=== PATIENT | male | born 1965 | race Caucasian/White ===

== ENCOUNTER 2018-09-16 06:31 | Inpatient (IN) ==
[2018-09-16] MEDS ORDERED: MoRPHine SULFATE 10 MG/ML CARP/VIAL IV STA ×2 (06:52→08:17)
[2018-09-16] MEDS ORDERED: SODIUM CHLORIDE 0.9% 1000ML 1,000 ML IV ONE (06:52)
[2018-09-16] MEDS ORDERED: ONDANSETRON INJ 2 MG/ML 2 ML VIAL IV STA (06:52)
--- NOTE | 2018-09-16 06:59 | Emergency Department Note ---
History of Present Illness General Chief complaint: GI Assessment Stated complaint: LEFT SIDE INTESTINAL PAIN Time Seen by Provider: 09/16/18 06:44 History of Present Illness Maximum Pain Intensity: 7 This 52-year-old male presents the ER with chief complaint of left-sided abdominal pain. The patient states that he has had a dull pain in the left side intermittently for several months. This morning it got very severe and he rates it at a 7 out of 10 and is more sharp in nature. The patient admits to some nausea but denies any vomiting. The patient denies any diarrhea. The patient denies any urinary symptoms of frequency, urgency or dysuria. The patient does have a history of kidney stones but this does not feel similar. The patient denies any abdominal surgeries. He denies any chest pain, shortness of breath or fever. He had a colonoscopy 5 years ago which was normal. Home Medications Home Medications Medication Instructions Recorded Confirmed Type No Known Home Medications 09/16/18 09/16/18 History Allergies Allergy/AdvReac Type Severity Reaction Status Date / Time aspirin Allergy Unknown . Verified 09/16/18 06:50 NSAIDS (Non-Steroidal Allergy Unknown hives Verified 09/16/18 06:50 Anti-Inflamma Past Med/Surg History Medical History No significant past medical history No significant past surgical history Social History Preferred Language: Turkmen Communication Ability: Effective Visual Impairment: No Limitations marital status: Current Living Situation: Spouse Feels Safe at Home: Yes Smoking Status: Current some day smoker Hx Alcohol Use: Yes Review of Systems A total of 10 systems reviewed and were otherwise negative Physical Exam Vital Signs Vital Signs - 24 hr 09/16/18 06:35 09/16/18 07:26 09/16/18 08:00 Temperature 36.6 C Temperature Source Oral Sepsis Recent Fever Within 48 Hours No Sepsis New/Unexplained Change in Mental Status No Sepsis Action Taken by Nursing No Action Required Pulse Rate 66 87 Pulse Rate [Right Finger] 78 Pulse Rhythm Regular Regular Pulse Strength Normal Respiratory Rate 20 20 16 Respiratory Effort / Characteristics Non-Labored Spontaneous Non-Labored Spontaneous Respiratory Depth Normal Normal Respiratory Pattern Regular Regular Blood Pressure 154/106 H Blood Pressure [Right Arm] 143/102 H Blood Pressure Mean 122 Blood Pressure Mean [Right Arm] 115 Blood Pressure Position Sitting Pulse Oximetry 96 98 95 Oxygen Delivery Method Room Air Room Air Room Air 09/16/18 09:03 Temperature Temperature Source Sepsis Recent Fever Within 48 Hours Sepsis New/Unexplained Change in Mental Status Sepsis Action Taken by Nursing Pulse Rate Pulse Rate [Right Finger] 68 Pulse Rhythm Pulse Strength Respiratory Rate 20 Respiratory Effort / Characteristics Non-Labored Spontaneous Respiratory Depth Normal Respiratory Pattern Regular Blood Pressure Blood Pressure [Right Arm] 101/95 Blood Pressure Mean Blood Pressure Mean [Right Arm] 97 Blood Pressure Position Pulse Oximetry 100 Oxygen Delivery Method Room Air GENERAL: 52-year-old male appears uncomfortable secondary to abdominal pain. MENTAL Status: Alert and oriented x3. MOUTH: Mucosa is moist NECK: Supple, no lymphadenopathy noted. No carotid bruits noted. LUNGS: Clear auscultation without wheezes rales or rhonchi. CARDIAC: Regular rate and rhythm without murmur. Pulses is full and equal throughout. BACK: No CVA tenderness noted. ABDOMEN: Positive bowel sounds all 4 quadrants. Soft, mild tenderness in the left entire abdomen right side is nontender to palpation without organomegaly or masses. EXTREMITIES: No cyanosis or edema noted. Course Administered Medications Discontinued Medications Sodium Chloride (Nss 1000ml) 1,000 mls @ 999 mls/hr IV .Q1H1M ONE Stop: 09/16/18 07:52 Last Infusion: 09/16/18 08:32 Dose: 1,000 mls/hr Documented by: [id number] Admin: 09/16/18 07:21 Dose: 999 mls/hr Documented by: [id number] Morphine Sulfate (Morphine Sulfate) 6 mg IV NOW STA Stop: 09/16/18 06:53 Last Admin: 09/16/18 07:21 Dose: 10 mg Documented by: [id number] Morphine Sulfate (Morphine Sulfate) 6 mg IV NOW STA Stop: 09/16/18 08:18 Last Admin: 09/16/18 08:22 Dose: 10 mg Documented by: [id number] Ondansetron HCl (Zofran) 4 mg IV NOW STA Stop: 09/16/18 06:53 Last Admin: 09/16/18 07:20 Dose: 4 mg Documented by: [id number] Tamsulosin HCl (Flomax) 0.4 mg PO NOW ONE Stop: 09/16/18 08:12 Last Admin: 09/16/18 08:15 Dose: 0.4 mg Documented by: [id number] Medical Decision Making Differential Diagnosis Diverticulitis, colitis, ureteral calculi, pyelonephritis, UTI Medical Records Attestation: I reviewed the patient's medical records. Home Medications Current Medication List: was personally reviewed by me Laboratory Data Attestation: I reviewed the patient's lab results. Result diagrams: 09/16/18 07:15 09/16/18 07:15 Lab Results 09/16/18 09/16/18 09/16/18 Range/Units 07:15 07:15 07:15 WBC 18.70 H (4.8-10.8) K/uL RBC 5.03 (4.7-6.1) M/uL Hgb 16.0 (14.0-18.0) g/dL Hct 46.6 (42-52) % MCV 92.6 (80-100) fL MCH 31.8 (25-34) pg MCHC 34.3 (32-36) g/dL RDW Std Deviation 45.1 (36.4-46.3) fL RDW Coeff of Hai 13.4 (11.5-14.5) % Plt Count 362 (130-400) K/uL MPV 10.1 (7.4-10.4) fL Immature Gran % (Auto) 0.4 % Neut % (Auto) 82.8 % Lymph % (Auto) 8.6 % [place] % (Auto) 7.8 % Eos % (Auto) 0.2 % Baso % (Auto) 0.2 % Immature Gran # (Auto) 0.07 H (0.00-0.02) K/uL Neut # (Auto) 15.50 H (1.4-6.5) K/uL Lymph # (Auto) 1.61 (1.2-3.4) K/uL [place] # (Auto) 1.45 H (0.11-0.59) K/uL Eos # (Auto) 0.04 (0-0.5) K/uL Baso # (Auto) 0.03 (0-0.2) K/uL Sodium 140 (136-145) mmol/L Potassium 3.7 (3.5-5.1) mmol/L Chloride 108 H (98-107) mmol/L Carbon Dioxide 25 (21-32) mmol/L Anion Gap 7.0 (3-11) BUN 18 (7-18) mg/dl Creatinine 1.03 (0.6-1.4) mg/dl Est Cr Clr Drug Dosing 86.1 ml/min Est GFR ( Amer) 97.0 Est GFR (Non-Af Amer) 83.7 BUN/Creatinine Ratio 17.9 (10-20) Glucose 113 H (70-99) mg/dl Calcium 9.0 (8.5-10.1) mg/dl Total Bilirubin 0.4 (0.2-1) mg/dl AST 23 (15-37) U/L ALT 41 (12-78) U/L Alkaline Phosphatase 44 L (45-117) U/L Total Protein 7.6 (6.4-8.2) gm/dl Albumin 3.8 (3.4-5.0) gm/dl Globulin 3.8 (2.5-4.0) gm/dl Albumin/Globulin Ratio 1.0 (0.9-2) Lipase 156 (73-393) U/L Urine Color Yellow Urine Appearance Slightly Cloudy (Clear) Urine pH 7.0 (4.5-7.5) Ur Specific [place] 1.025 (1.000-1.030) Urine Protein 1+ H (Negative) Urine Glucose (UA) Negative (Negative) Urine Ketones Negative (Negative) Urine Blood 3+ H (Negative) Urine Nitrite Negative (Negative) Urine Bilirubin Negative (Negative) Urine Urobilinogen Negative (Negative) Ur Leukocyte Esterase Negative (Negative) Urine RBC >30 H (0-4) /hpf Urine WBC 10-30 H (0-5) /hpf Ur Epithelial Cells 5-10 H (0-5) /lpf Urine Crystals Calcium Oxalate H (None Prsent) Urine Bacteria 1+ H (Negative) Imaging Data Attestation: I personally reviewed and interpreted this imaging study as follows: My Impression: Large proximal left stone noted Radiologist's Impression: CT abd pelvis wo con CLINICAL HISTORY: 52 years-old Male presenting with Left-sided abdominal and flank pain. TECHNIQUE: Multidetector CT of the abdomen and pelvis was performed without the use of intravenous contrast. IV contrast: None. One or more dose lowering techniques were used consistent with the principles of ALARA (as low as reasonably achievable), including automatic exposure control, mA or kV adjustment to individual patient size, and/or use of iterative reconstruction. COMPARISON: None. CT DOSE (mGy.cm): The estimated cumulative dose is 615.03 mGy.cm. FINDINGS: [employer] Installer topogram: Calcification projects over the left mid abdomen. Lung bases: Normal heart size. No pericardial or pleural effusion. Minimal dependent changes likely atelectasis. Liver: Normal morphology. Normal density. Biliary: No gross biliary ductal dilatation allowing for noncontrast technique. Normal gallbladder. Pancreas: Normal noncontrast appearance. Spleen: Normal noncontrast appearance. Splenule noted. Adrenal glands: Normal. Kidneys and ureters: Moderate pelvocaliectasis of the left kidney with moderate left perinephric fat infiltration markedly asymmetric to the right. Lower density left renal parenchyma. Obstructing 19 mm calculus in the left ureteropelvic junction. Urothelial thickening noted in this region with periureteral fat infiltration. The remainder of the left ureter is decompressed. No additional ureteral calculus. Multiple bilateral largely punctate nonobstructing renal calculi with a greater stone burden on the left. Hypodensity in the right kidney likely cyst. No right hydronephrosis or hydroureter. Bladder: Circumferential bladder wall thickening. Pelvic organs: Normal noncontrast appearance. Bowel: Normal appendix. No bowel obstruction. Peritoneal cavity: No free fluid or intraperitoneal gas. Lymph nodes: No gross lymphadenopathy allowing for noncontrast technique. Vasculature: Normal noncontrast appearance. Abdominal wall: Normal. Musculoskeletal: Normal. IMPRESSION: 1. Obstructing 19 mm calculus at the left ureteropelvic junction with resultant moderate left hydronephrosis. 2. Bilateral nonobstructing nephrolithiasis with a greater stone burden on the left. These calculi are largely punctate. 3. Circumferential bladder wall thickening may be reactive, indicate underlying cystitis, or due to chronic bladder outlet obstruction in the setting of benign prostatic hyperplasia. Correlate with urinalysis. Electronically signed by: Romulo Johnson M.D. 09/16/2018 8:55 AM Blood Pressure Blood Pressure Findings: Elevated blood pressure MDM Narrative The patient was evaluated. IV access was obtained. The patient was given 1 L of normal saline wide open. He was given Zofran 4 mg IV and morphine 6 mg IV. CBC and differential, renal profile, LFTs and lipase levels were ordered. Urinalysis was ordered. CT of the abdomen and pelvis with IV and oral contrast was ordered and interpreted by the radiologist and myself. Labs are reviewed. The patient's white count was elevated at 18,000 otherwise labs are unremarkable. Urinalysis revealed +3 blood. Also revealed revealed calcium oxalate. negative for nitrates and leukocytes. I feel that this is most likely a kidney stone therefore the CT with IV and oral contrast was canceled and a CT without contrast was ordered. The patient was given Flomax 0.4 mg p.o. the patient was reevaluated and was still in significant pain therefore he was given additional 6 mg of morphine IV. CT of the abdomen and pelvis revealed a 19 mm stone at the left ureteropelvic junction. This is moderate hydro. I consulted Dr. Swanson's PA, Cherry Landeros who stated to have the patient admitted through medicine and they will see the patient on the floor[facility] Impression & Plan Left ureteral calculus, Hydronephrosis Discharge Plan Visit Data Chief Complaint: GI Assessment Stated Complaint: LEFT SIDE INTESTINAL PAIN ED Provider: Fernando Liu ED Midlevel Provider: Luly Mccain Discharge Problem: Left ureteral calculus, Hydronephrosis Patient Disposition: Being Evaluated by Hospitalist Forms Stand Alone Forms: [facility], Important Visit Information Prescriptions Prescriptions: No Action No Known Home Medications RF: 0 Referrals Referrals: Ken Brown [Primary Care Provider] -
[2018-09-16 07:28] LABS: Basophils # (auto) 0.03 K/uL (0-0.2); Basophils % (auto) 0.2 %; Eosinophils # (auto) 0.04 K/uL (0-0.5); Eosinophils % (auto) 0.2 %; Hematocrit (blood only) 46.6 % (42-52); Immature Granulocytes # (auto) 0.07 K/uL (0.00-0.02); Immature Granulocytes % (auto) 0.4 %; Lymphocytes # (auto) 1.61 K/uL (1.2-3.4); Lymphocytes % (auto) 8.6 %; Mean Corpuscular Hgb Conc 34.3 g/dL (32-36); Mean Corpuscular Volume 92.6 fL (80-100); Mean Platelet Volume 10.1 fL (7.4-10.4); Monocytes # (auto) 1.45 K/uL (0.11-0.59); Monocytes % (auto) 7.8 %; Neutrophils % (auto) 82.8 %; Platelet Count 362 K/uL (130-400); RDW Coefficient of Variation 13.4 % (11.5-14.5); RDW Standard Deviation 45.1 fL (36.4-46.3); Red Blood Count 5.03 M/uL (4.7-6.1)
[2018-09-16 07:35] LABS: Appearance Urine Slightly Cloudy (Clear); Bilirubin Urine Negative (Negative); Blood Urine 3+ (Negative); Color Urine Yellow; Glucose Urine UA Negative (Negative); Ketones Urine Negative (Negative); Leukocyte Esterase Urine Negative (Negative); Nitrite Urine Negative (Negative); Protein Urine 1+ (Negative); Specific Gravity Urine 1.025 (1.000-1.030); Urobilinogen Urine Negative (Negative)
[2018-09-16 07:39] LABS: Bacteria Urine 1+ (Negative); RBC Urine >30 /hpf (0-4)
[2018-09-16 07:44] LABS: Albumin Level 3.8 gm/dl (3.4-5.0); BUN Creatinine Ratio 17.9 (10-20); Creatinine Clr Calc Pharmacy 86.1 ml/min; Est GFR (Non-African American) 83.7; Potassium 3.7 mmol/L (3.5-5.1)
[2018-09-16 07:47] LABS: Bilirubin,Total 0.4 mg/dl (0.2-1); Globulin 3.8 gm/dl (2.5-4.0); Total Protein 7.6 gm/dl (6.4-8.2)
[2018-09-16] MEDS ORDERED: TAMSULOSIN HCL 0.4 MG CAP PO ONE (08:11)
--- NOTE | 2018-09-16 08:56 | CT Scan Report ---
CT abd pelvis wo con CLINICAL HISTORY: 52 years-old Male presenting with Left-sided abdominal and flank pain. TECHNIQUE: Multidetector CT of the abdomen and pelvis was performed without the use of intravenous co ntrast. IV contrast: None. One or more dose lowering techniques were used consistent with the princip les of ALARA (as low as reasonably achievable), including automatic exposure control, mA or kV adjust ment to individual patient size, and/or use of iterative reconstruction. COMPARISON: None. CT DOSE (mGy.cm): The estimated cumulative dose is 615.03 mGy.cm. FINDINGS: Promotion Manager topogram: Calcification projects over the left mid abdomen. Lung bases: Normal heart size. No pericardial or pleural effusion. Minimal dependent changes likely a telectasis. Liver: Normal morphology. Normal density. Biliary: No gross biliary ductal dilatation allowing for noncontrast technique. Normal gallbladder. Pancreas: Normal noncontrast appearance. Spleen: Normal noncontrast appearance. Splenule noted. Adrenal glands: Normal. Kidneys and ureters: Moderate pelvocaliectasis of the left kidney with moderate left perinephric fat infiltration markedly asymmetric to the right. Lower density left renal parenchyma. Obstructing 19 mm calculus in the left ureteropelvic junction. Urothelial thickening noted in this region with periure teral fat infiltration. The remainder of the left ureter is decompressed. No additional ureteral calc ulus. Multiple bilateral largely punctate nonobstructing renal calculi with a greater stone burden on the left. Hypodensity in the right kidney likely cyst. No right hydronephrosis or hydroureter. Bladder: Circumferential bladder wall thickening. Pelvic organs: Normal noncontrast appearance. Bowel: Normal appendix. No bowel obstruction. Peritoneal cavity: No free fluid or intraperitoneal gas. Lymph nodes: No gross lymphadenopathy allowing for noncontrast technique. Vasculature: Normal noncontrast appearance. Abdominal wall: Normal. Musculoskeletal: Normal. IMPRESSION: 1. Obstructing 19 mm calculus at the left ureteropelvic junction with resultant moderate left hydron ephrosis. 2. Bilateral nonobstructing nephrolithiasis with a greater stone burden on the left. These calculi a re largely punctate. 3. Circumferential bladder wall thickening may be reactive, indicate underlying cystitis, or due to chronic bladder outlet obstruction in the setting of benign prostatic hyperplasia. Correlate with uri nalysis. Electronically signed by: Romulo Johnson M.D. 09/16/2018 8:55 AM
[2018-09-16] MEDS ORDERED: SODIUM CHLORIDE 0.9% 1000ML 500 ML IV STA (10:00)
--- NOTE | 2018-09-16 10:14 | History & Physical Report ---
Date of Service September 16, 2018 Assessment & Plan (1) Left ureteral calculus: This is a 52 year old male who has a significant PMH of kacy thyroiditis, tobacco use disorder, hx of nephrolithiasis s/p cysto and lithotripsy in 2006, NSAID/ASA allergy who presents to [facility] ED secondary to LLQ abdominal pain x [address] Scan abd/pelvis revealed large obstructing 19mm L renal calculus at UPJ with moderate L hydronephrosis along with bilateral nonobstructing nephrolithiasis with a greater stone burden on the left. 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 (5) Tobacco use disorder: -pt defers nicotine patch at this time (6) DVT prophylaxis: -SCDS/TEDS, pt low risk for DVT and likely to undergo procedure later today Disposition: D/C to home when able Follow up: PCP Dr. Brown upon discharge Patient was seen and examined in collaboration with Dr. Aparicio, please see addendum Starting 09/16/18 patient will be followed by Dr. Christina History of Present Illness Chief Complaint: LLQ abdominal pain x 1 day. Primary Care Provider: Ken Brown This is a 52 year old male who has a significant PMH of kacy thyroiditis, tobacco use disorder, hx of nephrolithiasis s/p cysto and lithotripsy in 2006, NSAID/ASA allergy who presents to [facility] ED secondary to LLQ abdominal pain x 1 day. Patient elicits he has been having off and on LLQ pain for the past 6 months. Long time girlfriend is at bedside. He was scheduled to get worked up as outpatient for possible diverticulitis vs kidney stone. Last evening approx 9pm he developed sharp, stabbing LLQ abdominal pain, non radiating, 8/10 at worst, nothing made better or worse. He felt chilled but denied fever or sweats. Further complains of increased urgency/freq with urination which is not abnormal for patient and nausea. He denies emesis, diarrhea, dsyuria, gross hematuria, melena, hematochezia, chest pain, sob, dizziness, lightheaded. Currently pain is 4/10 after receiving analgesia in ED. Allergies Allergy/AdvReac Type Severity Reaction Status Date / Time aspirin Allergy Unknown . 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 (Chronic) Tobacco use disorder (Chronic) Allergy to NSAIDs (Chronic) Surgical History History of colonoscopy with polypectomy (Resolved) History of cystoscopy (Resolved) H/O nasal polypectomy (Resolved) H/O lithotripsy (Resolved) Family History Father Colon carcinoma metastatic to lung Mother Emphysema of lung Sister Bipolar disorder Social History Preferred Language: Kiswahili Communication Ability: Effective 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 Beliefs That Will Affect Care: None marital status: Single marital status details: Has long time girlfriend Current Living Situation: Significant Other Other Information That Helps Us Care for You: No Feels Safe at Home: Yes Safety Concerns: Feels Safe At This Time Smoking Status: Current some day smoker Hx Alcohol Use: Yes Hx Substance Use: No Review of Systems All systems reviewed & are unremarkable except as noted in HPI & below Physical Exam Vital Signs (Past 24 Hours): Last Vital Signs Temp 36.6 C 09/16/18 06:35 Pulse 68 09/16/18 09:03 Resp 20 09/16/18 09:03 BP 101/95 09/16/18 09:03 Pulse Ox 100 09/16/18 09:03 Physical Exam: Gen: WD/WN, M, NAD, sitting up in bed, pleasant, conversing easily Head: Normocephalic, Atraumatic Eyes: Sclera normal, no conjunctival injection, PERRLA, EOMI ENT: Gross hearing intact, normal pharynx, mucous membranes moist Neck: supple, no adenopathy, No JVD, no bruit, Resp: Clear to auscultation b/l, no wheeze, rales, rhonchi. Normal insp/exp effort, no accessory muscle use CV: Regular rate, regular rhythm, no murmur, rub, gallop, or ectopy Abd: +BS x 4, soft, + LLQ tenderness to light palpation, non distended, no rebound, guarding or CVA tenderness Musculoskeletal: moves extremities active rom x 4, strength intact, good g,rip strength Extremities: No edema bilaterally Skin: warm, moist, no rash, negative turgor, cap refill < 2sec Neuro: Alert and oriented x 3, speech normal, good mood/affect, cran nerve 2-12 intact grossly : deferred Results & Data Laboratory Results Short CBC 09/16/18 Range/Units 07:15 WBC 18.70 H (4.8-10.8) K/uL Hgb 16.0 (14.0-18.0) g/dL Hct 46.6 (42-52) % Plt Count 362 (130-400) K/uL BMP 09/16/18 07:15 Sodium 140 Potassium 3.7 Chloride 108 H Carbon Dioxide 25 BUN 18 Creatinine 1.03 Glucose 113 H Calcium 9.0 Liver Function 09/16/18 Range/Units 07:15 Total Bilirubin 0.4 (0.2-1) mg/dl AST 23 (15-37) U/L ALT 41 (12-78) U/L Alkaline Phosphatase 44 L (45-117) U/L Albumin 3.8 (3.4-5.0) gm/dl Urine 09/16/18 Range/Units 07:15 Urine Color Yellow Urine Appearance Slightly Cloudy (Clear) Urine pH 7.0 (4.5-7.5) Ur Specific [place] 1.025 (1.000-1.030) Urine Protein 1+ H (Negative) Urine Glucose (UA) Negative (Negative) Diagnostic Findings CT Scan Abd/Pelvis: IMPRESSION: 1. Obstructing 19 mm calculus at the left ureteropelvic junction with resultant moderate left hydronephrosis. 2. Bilateral nonobstructing nephrolithiasis with a greater stone burden on the left. These calculi are largely punctate. 3. Circumferential bladder wall thickening may be reactive, indicate underlying cystitis, or due to chronic bladder outlet obstruction in the setting of benign prostatic hyperplasia. Correlate with urinalysis. Medications Administered Discontinued Medications Sodium Chloride (Nss 1000ml) 1,000 mls @ 999 mls/hr IV .Q1H1M ONE Stop: 09/16/18 07:52 Last Infusion: 09/16/18 08:32 Dose: 1,000 mls/hr Documented by: [id number] Admin: 09/16/18 07:21 Dose: 999 mls/hr Documented by: [id number] Morphine Sulfate (Morphine Sulfate) 6 mg IV NOW STA Stop: 09/16/18 06:53 Last Admin: 09/16/18 07:21 Dose: 10 mg Documented by: [id number] Morphine Sulfate (Morphine Sulfate) 6 mg IV NOW STA Stop: 09/16/18 08:18 Last Admin: 09/16/18 08:22 Dose: 10 mg Documented by: [id number] Ondansetron HCl (Zofran) 4 mg IV NOW STA Stop: 09/16/18 06:53 Last Admin: 09/16/18 07:20 Dose: 4 mg Documented by: [id number] Tamsulosin HCl (Flomax) 0.4 mg PO NOW ONE Stop: 09/16/18 08:12 Last Admin: 09/16/18 08:15 Dose: 0.4 mg Documented by: [id number] Code Status & VTE Plan Code Status Full Code VTE Prophylaxis Plan VTE Prophylaxis will be ordered: Yes Reason for no VTE drug order: Treatment not indicated Supervising Physician Co-Signing Physician Notes Patient is a 52-year-old male with history of Kacy's thyroiditis, nephrolithiasis and other problems presents with history of left lower quadrant abdominal pain since 1 day duration. Abdominal pain is nonradiating, intermittent, sharp, no aggravating relieving factors. Patient denies any history of fever, chills, hematuria. CT abdomen showed 19 mm left renal calculus at UPJ with moderate left hydronephrosis. UA suggestive of possible urinary tract infection. On exam patient is moderately built, no apparent distress, lungs are clear to auscultation, S1-S2, no murmur, abdomen-left lower quadrant tenderness, left flank tender; neurologically no focal deficits, alert awake oriented, no pedal edema. Patient is diagnosed to have obstructive uropathy secondary to renal calculus and possible UTI. Patient will be kept n.p.o., IV fluids will be started, Pain control, start on Flomax and Rocephin for possible UTI. Urine cultures obtained. Urology is consulted for possible stent placement. Patient was noted to have elevated white count at 18K but no clear signs of sepsis. Patient has not been taking his thyroid medications since 2-3 years duration. Check TSH, free T4. Plan to start on levothyroxine based on thyroid function tests. I personally reviewed the record. Patient is interviewed and examined at bedside. Patient's care is coordinated with Leanne Jimenez PA-C. Please refer to the documentation above for details of patient's presentation and for discussion of other issues. (1) Hydronephrosis Hydronephrosis type: with ureteropelvic junction obstruction Qualified Code(s): Q62.11 - Congenital occlusion of ureteropelvic junction (2) Leucocytosis Leukocytosis type: unspecified Qualified Code(s): D72.829 - Elevated white blood cell count, unspecified
[2018-09-16] MEDS ORDERED: ACETAMINOPHEN 325 MG TAB PO PRN (10:53)
[2018-09-16] MEDS ORDERED: MoRPHine SULFATE 4 MG/ML 1 ML CARP\\VIAL IV PRN (10:53)
[2018-09-16] MEDS ORDERED: ALUMINUM/MAGNESIUM SUSP 30 ML UDC PO PRN (10:53)
[2018-09-16] MEDS ORDERED: POLYETHYLENE (MIRALAX) 17 GM PACK PO PRN (10:53)
[2018-09-16] MEDS ORDERED: ONDANSETRON INJ 2 MG/ML 2 ML VIAL IV PRN (10:53)
[2018-09-16] MEDS ORDERED: MAGNESIUM HYDROXIDE SUSP 30 ML UDC PO PRN (10:53)
--- NOTE | 2018-09-16 11:21 | Urology Consultation ---
Date of Consultation September 16, 2018 Assessment & Plan (1) Hydronephrosis: (2) Left ureteral calculus: 52yo M with 19mm Left UPJ stone with moderate hydro. Pt is nontoxic appearing, but visibly uncomfortable. Grunting and grimacing at times during evaluation. Pain modestly improved with IV pain control. Labs and VS are stable at this time. Reportedly only with small void today. Will order bladder scans PRN, Straight cath for >300cc. Continue IVFs and tamsulosin. Please keep NPO. Options for treatment discussed with patient and at bedside. Pt understands that this stone is too large for spontaneous passage and will benefit from surgical intervention today. This stone treatment may require multiple procedures, or possibly percutaneous intervention in the future for definitive stone management. Fiindings reviewed with Dr. Swanson. Given his uncontrolled pain in the context of an obstructing UPJ stone, will proceed with OR for cysto, left RPG and left stent placement, possible ureteroscopy, laser litho, stone basketing depending on findings. Risks and benefits to be reviewed with patient by Dr. Swanson. OR notified. Preoperative KUB, CXR and EKG ordered. Will cover with IV Ciprofloxacin preoperatively. History of Present Illness Reason for Consultation: stones Requesting Physician: Dr. Christina Attending Physician: Ericka Christina MD History of Present Illness 52yo M hx of nephrolithiasis presents to [facility] ED today with severe L flank pain and nausea, associated with obstructing 19mm left UPJ stone with moderate hydro. VSS, afebrile Pt appears uncomfortable on exam, rating pain 5/10 with intermittent, self- limiting sharp pains consistent with renal colic. He states IV medication is helping. Unfortunately he is allergic to NSAIDs (hives). Cr 1.03 on admission. UA abnormal but not obviously consistent with infection. UC&S pending. CT images personally reviewed. 19mm L UPJ stone with moderate hydronephrosis. Numerous bilateral punctate renal stones. Bladder with wall thickening, enlarged prostate. Pt denies new urinary urgency/frequency. Pt does acknowledge minimal urine output since arrival to ED. Denies dysuria/hematuria. Some nausea, denies vomiting. Hx nephrolithasis. Followed with [facility] many years ago. He has spontaneously passed a stone many years ago, and has required lithotripsy multiple years ago. Unsure of laterality. Allergies Allergy/AdvReac Type Severity Reaction Status Date / Time aspirin Allergy Unknown . 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) Tobacco use disorder (Chronic) Allergy to NSAIDs (Chronic) Surgical History History of colonoscopy with polypectomy (Resolved) History of cystoscopy (Resolved) H/O nasal polypectomy (Resolved) H/O lithotripsy (Resolved) Family History Father Colon carcinoma metastatic to lung Mother Emphysema of lung Sister Bipolar disorder Social History Preferred Language: [place] Communication Ability: Effective Grape Crusher Required: No Beliefs That Will Affect Care: None marital status: Single marital status details: Has long time girlfriend Current Living Situation: Significant Other Other Information That Helps Us Care for You: No Feels Safe at Home: Yes Safety Concerns: Feels Safe At This Time Smoking Status: Current some day smoker Hx Alcohol Use: Yes Hx Substance Use: No Review of Systems Constitutional: no fever and no chills Eyes: no problem reported Ear, Nose, Mouth, Throat: no ear pain Respiratory: no cough and no dyspnea Cardiovascular: no chest pain, no palpitations and no lightheadedness Gastrointestinal: + nausea; no abdominal pain, no bloating and no vomiting Musculoskeletal: no back pain (L flank pain as described in HPI) Integumentary: no acne and no boil Neurologic: no falls, no numbness and no paresthesia Psychiatric: no behavioral changes and no hopelessness Endocrine: no fatigue and no polydipsia Hematologic / Lymphatic: no easy bleeding Allergy / Immunological: no GI upset with certain foods Physical Exam Vital Signs (Past 24 Hours): Last Vital Signs Temp 36.6 C 09/16/18 06:35 Pulse 72 09/16/18 10:38 Resp 20 09/16/18 10:38 BP 151/90 H 09/16/18 10:38 Pulse Ox 98 09/16/18 10:38 Constitutional: well developed and cooperative; no acute distress, + uncomfortable and not lethargic grimacing and grunting with pain at times Eyes: no nystagmus ENMT: Ears: no hearing impairment Neck: trachea midline Respiratory: no respiratory distress and does not use accessory muscles Cardiovascular: Vessels: no JVD Chest (Breasts): Chest: no mass Gastrointestinal (Abdomen): Inspection/Auscultation: abdomen not distended and no abdominal edema Percussion/Palpation: abdomen soft; abdomen nontender Musculoskeletal: Head/Neck/Chest: normocephalic and head atraumatic Skin: no rashes Neurologic: awake; not confused and not obtunded Psychiatric: Orientation: alert and oriented x 3 Eye Contact: good eye contact Genitourinary: + CVA tenderness (left) Lymphatic: no lymphadenopathy Results & Data Laboratory Results Laboratory Results - last 48 hr 09/16/18 09/16/18 09/16/18 07:15 07:15 07:15 WBC 18.70 H RBC 5.03 Hgb 16.0 Hct 46.6 MCV 92.6 MCH 31.8 MCHC 34.3 RDW Std Deviation 45.1 RDW Coeff of Hai 13.4 Plt Count 362 MPV 10.1 Immature Gran % (Auto) 0.4 Neut % (Auto) 82.8 Lymph % (Auto) 8.6 [place] % (Auto) 7.8 Eos % (Auto) 0.2 Baso % (Auto) 0.2 Immature Gran # (Auto) 0.07 H Neut # (Auto) 15.50 H Lymph # (Auto) 1.61 [place] # (Auto) 1.45 H Eos # (Auto) 0.04 Baso # (Auto) 0.03 Sodium 140 Potassium 3.7 Chloride 108 H Carbon Dioxide 25 Anion Gap 7.0 BUN 18 Creatinine 1.03 Est Cr Clr Drug Dosing 86.1 Est GFR ( Amer) 97.0 Est GFR (Non-Af Amer) 83.7 BUN/Creatinine Ratio 17.9 Glucose 113 H Calcium 9.0 Total Bilirubin 0.4 AST 23 ALT 41 Alkaline Phosphatase 44 L Total Protein 7.6 Albumin 3.8 Globulin 3.8 Albumin/Globulin Ratio 1.0 Lipase 156 Urine Color Yellow Urine Appearance Slightly Cloudy Urine pH 7.0 Ur Specific [place] 1.025 Urine Protein 1+ H Urine Glucose (UA) Negative Urine Ketones Negative Urine Blood 3+ H Urine Nitrite Negative Urine Bilirubin Negative Urine Urobilinogen Negative Ur Leukocyte Esterase Negative Urine RBC >30 H Urine WBC 10-30 H Ur Epithelial Cells 5-10 H Urine Crystals Calcium Oxalate H Urine Bacteria 1+ H (1) Hydronephrosis Hydronephrosis type: with ureteropelvic junction obstruction Qualified Code(s): Q62.11 - Congenital occlusion of ureteropelvic junction
[2018-09-16] MEDS: SODIUM CHLORIDE 0.9% 1000ML 1,000 ML IV SCH ×2 (11:39→20:44)
[2018-09-16] MEDS ORDERED: cefTRIAXone SODIUM 1,000 MG in DEXTROSE 5% 50 ML IV SCH (12:00)
--- NOTE | 2018-09-16 12:41 | XRay Report ---
XR chest 1V portable CLINICAL HISTORY: preop, hx tobacco use preoperative evaluation COMPARISON STUDY: No previous studies for comparison. FINDINGS: The bones soft tissues and hemidiaphragms are normal. The cardiomediastinal silhouette is n ormal. The lungs are clear. The pulmonary vasculature is normal. IMPRESSION: Negative chest. The above report was generated using voice recognition software. It may contain grammatical, syntax or spelling errors. Electronically signed by: Ken Mccain M.D. 09/16/2018 12:40 PM
--- NOTE | 2018-09-16 12:43 | XRay Report ---
XR KUB CLINICAL HISTORY: ureteral stone nephrocalcinosis COMPARISON STUDY: CT 09/16/2018 FINDINGS: 1.7 cm calculus left ureteral pelvic junction. Previously Described bilateral nephrocalcinosis is obscured by overlying bowel content. Bowel pattern is nonobstructive. Several pelvic vascular calcifications. IMPRESSION: Unchanged 1.7 cm calculus left ureteropelvic junction. The above report was generated using voice recognition software. It may contain grammatical, syntax or spelling errors. Electronically signed by: Ken Mccain M.D. 09/16/2018 12:42 PM
[2018-09-16] MEDS ORDERED: HYDROmorphone INJ 1 MG/ML SYRINGE IV STA (13:48)
[2018-09-16] MEDS ORDERED: IOTHALAMATE MEGLUMINE II 17.2% 250 ML VIAL ONE (16:44)
[2018-09-16] MEDS ORDERED: fentaNYL citrate 100 MCG/2 ML VIAL ONE (17:15)
[2018-09-16] MEDS ORDERED: PROPOFOL IV EMULSION 10 MG/ML 20 ML VIAL IV ONE (17:15)
[2018-09-16] MEDS ORDERED: LIDOCAINE HCL 2% 2 ML VIAL/AMP(20MG/ML) INFIL ONE (17:15)
[2018-09-16] MEDS ORDERED: MIDAZOLAM HCL 1 MG/ML 2ML VIAL ONE (17:16)
--- NOTE | 2018-09-16 17:58 | Post Operative Brief Note ---
Immediate Post Op Note v1 Date of Surgery September 16, 2018 Pre & Post Diagnosis Operation Date: 09/16/18 15:55 Pre-Op Diagnosis: Left ureteral calculus with hydronephrosis Post-Op Diagnosis: Left ureteral calculus with hydronephrosis Procedure Operation Date: 09/16/18 15:55 Actual Procedures p Cystoscopy, Retrograde Pyelogram, Left Stent, Ureteroscopy(Left) - Mauricio Swanson MD Surgeon Mauricio Swanson MD President & Founder none Estimated Blood Loss 5 Findings See Below (narrow ureteral opening , stent in good position)
--- NOTE | 2018-09-16 18:16 | Fluoroscopy Report ---
FL retrograde includes kub HISTORY: 52 years-old Male LT CYSTO/LASER/STENT status post placement of a left ureteral stent. Left nephrolithiasis COMPARISON: CT abdomen and pelvis 09/16/2017 TECHNIQUE: 2 spot fluoroscopic images of the left upper abdomen were obtained utilizing 33.3 seconds fluoroscopy time FINDINGS: Large calculus about the left ureteropelvic junction redemonstrated. Guidewire noted within the left ureter. The last image demonstrates deployment of a left ureteral stent, proximal pigtail portion in the region of the left renal pelvis. Contrast opacification of the left collecting system demonstrate s persistent hydronephrosis. The distal portion of the stent is not imaged. IMPRESSION: Fluoroscopic assistance as above. Please see procedural report for further details. The above report was generated using voice recognition software. It may contain grammatical, syntax o r spelling errors. Electronically signed by: Tex Grullon M.D. 09/16/2018 6:15 PM
--- NOTE | 2018-09-16 18:40 | Anesthesiology Consultation ---
Date of Service September 16, 2018 Assessment & Plan Chart Review Chart Review: Acceptable Risk for Surgery Consults Requested none NPO Date Last Intake of Fluids: 09/16/18 Time Last Intake of Fluids: 08:00 Last Intake of Fluids Comment: Pt had water and coffee prior to arrival to hospital today Date Last Intake of Solids: 09/15/18 Time Last Intake of Solids: 18:00 History Surgery Operation Date: 09/16/18 15:55 Proposed Procedures p Cystoscopy, Retrograde Pyelogram, Left Stent, Possible Ureteroscopy, Laser Lithotripsy - Mauricio Swanson MD Height/Weight Height: 5 ft 7 in Weight: 80.2 kg Allergies Allergy/AdvReac Type Severity Reaction Status Date / Time aspirin Allergy Unknown . Verified 09/16/18 06:50 NSAIDS (Non-Steroidal Allergy Unknown hives Verified 09/16/18 06:50 Anti-Inflamma nickel Allergy Redness of Verified 09/16/18 09:51 Skin Medications Home Medications Medication Instructions Recorded Confirmed Last Taken No Known Home Medications 09/16/18 09/16/18 Unknown Active Medications Generic Name Dose Route Start Last Admin Trade Name Freq PRN Reason Stop Dose Admin Sodium Chloride 1,000 mls @ 150 mls/hr 09/16/18 11:30 09/16/18 16:41 Nss 1000ml IV 10/16/18 11:29 0 mls/hr .[id number] TASHI Infusion Ceftriaxone Sodium 1,000 mg/ 60 mls @ 100 mls/hr 09/16/18 12:00 09/16/18 13:50 Dextrose IV 09/21/18 11:59 Infused DAILY@1200 TASHI Infusion Morphine Sulfate 4 mg 09/16/18 10:53 09/16/18 11:35 Morphine Sulfate IV 09/30/18 10:52 4 mg Q4H PRN Administration Pain Past Medical History Medical History 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) Tobacco use disorder (Chronic) Allergy to NSAIDs (Chronic) Past Family History Family History Father Colon carcinoma metastatic to lung Mother Emphysema of lung Sister Bipolar disorder Past Surgical History Surgical History History of colonoscopy with polypectomy (Resolved) History of cystoscopy (Resolved) H/O nasal polypectomy (Resolved) H/O lithotripsy (Resolved) Social History Smoking Status: Current some day smoker tobacco type: cigarettes Smoking cigarettes per day: 5 Do You Dip or Chew Tobacco: No Hx Alcohol Use: Yes alcohol intake frequency: a few times a week Alcohol Intake Frequency Comment: 1 drink a week Hx Substance Use: No Physical Exam Vital Signs Last Vital Signs Temp 36.9 C 09/16/18 18:35 Pulse 64 09/16/18 18:35 Resp 19 09/16/18 18:35 BP 133/87 09/16/18 18:35 Pulse Ox 97 09/16/18 18:35 Testing Laboratory Results 09/16/18 07:15 09/16/18 07:15 Urine Color Yellow 09/16/18 07:15 Urine Appearance Slightly Cloudy (Clear) 09/16/18 07:15 Urine pH 7.0 (4.5-7.5) 09/16/18 07:15 Ur Specific [place] 1.025 (1.000-1.030) 09/16/18 07:15 Urine Protein 1+ (Negative) H 09/16/18 07:15 Urine Glucose (UA) Negative (Negative) 09/16/18 07:15 Urine Ketones Negative (Negative) 09/16/18 07:15 Urine Nitrite Negative (Negative) 09/16/18 07:15 Ur Leukocyte Esterase Negative (Negative) 09/16/18 07:15 Urine RBC >30 /hpf (0-4) H 09/16/18 07:15 Urine WBC 10-30 /hpf (0-5) H 09/16/18 07:15 Ur Epithelial Cells 5-10 /lpf (0-5) H 09/16/18 07:15
--- NOTE | 2018-09-17 02:10 | Operative Report ---
DATE OF OPERATION: 09/16/2018 PROCEDURE PERFORMED: Cystoscopy and left stent placement. HISTORY OF PRESENTATION: The patient is a 52-year-old male with a history of having lithotripsy 10 years ago for a stone who presents now with several weeks of discomfort and severe pain starting today with CAT scan that shows a large 1.5 x 1 mm obstructing stone in the UPJ and into the renal pelvis. The patient's pain was relatively severe. We discussed the options and tonight, we elected to place a stent in preparation for attempt at ESWL or ureteroscopy We will discuss further later with the patient, but tonight the idea was to place a stent. He did have an elevated white blood cell count and wanted to make sure that there was no evidence of infection or fever and relieve his discomfort. DESCRIPTION OF THE PROCEDURE: The patient was taken to the cystoscopy suite, where anesthesia was administered. Venodyne stockings placed, has been on Rocephin because of the elevated white blood cell count. Cystoscopy was performed, had some narrowing at the bulbar urethra, but no definite stricture. Prostatic urethra was short and relatively tight. Once inside the bladder, there was mild trabeculation, but no tumor. The left ureteral orifice was narrow. I was unable to place a 5-Belarusian open-ended catheter into it because it is so narrow. I was able to place a guidewire, a dual flex through the open-ended catheter and then passed that up to the stone. The guidewire would not go by the stone until it passed the open-ended catheter, right up to the stone and then the guidewire would pass by the stone. I passed the open-ended catheter by the guidewire. I was able to get 20 mL of cloudy dark fluid sent for culture. Then was able to repass the wire and placed a 4.8 Belarusian 24 cm stent with a curl in the renal pelvis and a curl in the bladder. End of the procedure, the patient was transferred to recovery room. The renal pelvis was being decompressed. I put some contrast into the renal pelvis to identify the position of the dilated calices prior to the placement of the stent. The patient tolerated the procedure well and was transferred to recovery room in stable condition. I attest to the content of the Intraoperative Record and any orders documented therein. Any exceptions are noted below. BLAIR
[2018-09-17] MEDS: SODIUM CHLORIDE 0.9% 1000ML 1,000 ML IV SCH ×2 (03:09→08:23)
[2018-09-17] MEDS ORDERED: Nursing to Pharmacy Communication ONE (05:16)
[2018-09-17] MEDS ORDERED: CIPROFLOXACIN 400 MG/200 ML BAG IV SCH (06:00)
[2018-09-17 07:14] LABS: Basophils # (auto) 0.03 K/uL (0-0.2); Basophils % (auto) 0.3 %; Eosinophils # (auto) 0.24 K/uL (0-0.5); Eosinophils % (auto) 2.4 %; Hematocrit (blood only) 41.2 % (42-52); Hemoglobin 13.8 g/dL (14.0-18.0); Immature Granulocytes # (auto) 0.02 K/uL (0.00-0.02); Immature Granulocytes % (auto) 0.2 %; Lymphocytes # (auto) 2.63 K/uL (1.2-3.4); Lymphocytes % (auto) 26.6 %; Mean Corpuscular Hgb Conc 33.5 g/dL (32-36); Monocytes # (auto) 0.97 K/uL (0.11-0.59); Monocytes % (auto) 9.8 %; Neutrophils # (auto) 5.99 K/uL (1.4-6.5); Neutrophils % (auto) 60.7 %; Platelet Count 295 K/uL (130-400); RDW Coefficient of Variation 13.3 % (11.5-14.5); RDW Standard Deviation 45.4 fL (36.4-46.3); Red Blood Count 4.43 M/uL (4.7-6.1); White Blood Count 9.88 K/uL (4.8-10.8)
[2018-09-17 07:51] LABS: Calcium 7.4 mg/dl (8.5-10.1); Creatinine Clr Calc Pharmacy 100.8 ml/min; Est GFR (African American) 115.3; Est GFR (Non-African American) 99.5; Potassium 3.7 mmol/L (3.5-5.1)
[2018-09-17] MEDS: TAMSULOSIN HCL 0.4 MG CAP PO SCH (08:24)
--- NOTE | 2018-09-17 09:19 | Urology Progress Note ---
Date of Service September 17, 2018 Assessment & Plan (1) Left ureteral calculus: (2) Hydronephrosis: 52yo M s/p POD#1 cysto, L RPG and ureteral stent placement. 19mm L UPJ stone maintained. Hemodynamically stable. Pain greatly improved s/p stent. Will arrange for close outpatient f/u on Friday, 09/21 at 11:30AM and plan for outpatient lithotripsy procedure next Friday. Discussed plan of care with patient, he is agreeable. Okay to d/c home from perspective. Please send home with tamsulosin, potassium citrate 15mg QDay and pain control. Thank you for allowing us to participate in the acute care of Mr. Hughes. Please reconsult us with additional questions, concerns or changes in patient status. Subjective 52yo M POD #1 cysto, L RPG, and ureteral stent placement. 19mm L UPJ stone remains. VSS, afebrile Pt had an uneventful night, did not sleep well but relates to being in new environment. Pain is much better controlled presently, has not required morphine since yesterday afternoon. Reports mild stent irritation, mild hematuria. Leukocytosis resolved, Cr within normal limits. UA not consistent with infection. UC&S pending. Physical Exam Vital Signs (Past 24 Hours): Last Vital Signs Temp 36.7 C 09/17/18 07:32 Pulse 65 09/17/18 07:32 Resp 18 09/17/18 07:32 BP 116/74 09/17/18 07:32 Pulse Ox 93 09/17/18 07:32 Results & Data Laboratory Results Laboratory Results - last 48 hr 09/16/18 09/16/18 09/16/18 07:15 07:15 07:15 WBC 18.70 H RBC 5.03 Hgb 16.0 Hct 46.6 MCV 92.6 MCH 31.8 MCHC 34.3 RDW Std Deviation 45.1 RDW Coeff of Hai 13.4 Plt Count 362 MPV 10.1 Immature Gran % (Auto) 0.4 Neut % (Auto) 82.8 Lymph % (Auto) 8.6 [place] % (Auto) 7.8 Eos % (Auto) 0.2 Baso % (Auto) 0.2 Immature Gran # (Auto) 0.07 H Neut # (Auto) 15.50 H Lymph # (Auto) 1.61 [place] # (Auto) 1.45 H Eos # (Auto) 0.04 Baso # (Auto) 0.03 Sodium 140 Potassium 3.7 Chloride 108 H Carbon Dioxide 25 Anion Gap 7.0 BUN 18 Creatinine 1.03 Est Cr Clr Drug Dosing 86.1 Est GFR ( Amer) 97.0 Est GFR (Non-Af Amer) 83.7 BUN/Creatinine Ratio 17.9 Glucose 113 H Calcium 9.0 Total Bilirubin 0.4 AST 23 ALT 41 Alkaline Phosphatase 44 L Total Protein 7.6 Albumin 3.8 Globulin 3.8 Albumin/Globulin Ratio 1.0 Lipase 156 TSH Urine Color Yellow Urine Appearance Slightly Cloudy Urine pH 7.0 Ur Specific [place] 1.025 Urine Protein 1+ H Urine Glucose (UA) Negative Urine Ketones Negative Urine Blood 3+ H Urine Nitrite Negative Urine Bilirubin Negative Urine Urobilinogen Negative Ur Leukocyte Esterase Negative Urine RBC >30 H Urine WBC 10-30 H Ur Epithelial Cells 5-10 H Urine Crystals Calcium Oxalate H Urine Bacteria 1+ H 09/17/18 09/17/18 06:56 06:56 WBC 9.88 RBC 4.43 L Hgb 13.8 L Hct 41.2 L MCV 93.0 MCH 31.2 MCHC 33.5 RDW Std Deviation 45.4 RDW Coeff of Hai 13.3 Plt Count 295 MPV 10.0 Immature Gran % (Auto) 0.2 Neut % (Auto) 60.7 Lymph % (Auto) 26.6 [place] % (Auto) 9.8 Eos % (Auto) 2.4 Baso % (Auto) 0.3 Immature Gran # (Auto) 0.02 Neut # (Auto) 5.99 Lymph # (Auto) 2.63 [place] # (Auto) 0.97 H Eos # (Auto) 0.24 Baso # (Auto) 0.03 Sodium 138 Potassium 3.7 Chloride 110 H Carbon Dioxide 23 Anion Gap 5.0 BUN 11 Creatinine 0.88 Est Cr Clr Drug Dosing 100.8 Est GFR ( Amer) 115.3 Est GFR (Non-Af Amer) 99.5 BUN/Creatinine Ratio 13.0 Glucose 89 Calcium 7.4 L D Total Bilirubin AST ALT Alkaline Phosphatase Total Protein Albumin Globulin Albumin/Globulin Ratio Lipase TSH 1.620 Urine Color Urine Appearance Urine pH Ur Specific [place] Urine Protein Urine Glucose (UA) Urine Ketones Urine Blood Urine Nitrite Urine Bilirubin Urine Urobilinogen Ur Leukocyte Esterase Urine RBC Urine WBC Ur Epithelial Cells Urine Crystals Urine Bacteria (1) Hydronephrosis Hydronephrosis type: with ureteropelvic junction obstruction Qualified Code(s): Q62.11 - Congenital occlusion of ureteropelvic junction
--- NOTE | 2018-09-17 09:48 | Anesthesiology Progress Note ---
Date of Service September 17, 2018 Anesthesia Post Procedure Vital Signs Vital Signs: Temp Pulse Pulse Pulse Resp BP BP 09/17/18 09:30 36.7 C 75 16 132/84 09/17/18 07:32 36.7 C 65 18 116/74 09/17/18 03:50 36.6 C 68 18 116/77 09/16/18 23:09 37.1 C 74 20 138/83 09/16/18 22:11 37.0 C 75 20 137/86 09/16/18 21:00 37.0 C 66 18 145/89 H 09/16/18 20:00 36.9 C 70 18 131/86 09/16/18 19:25 65 16 158/98 H 09/16/18 19:00 36.5 C 65 18 147/93 H 09/16/18 18:45 36.9 C 65 19 147/99 H 09/16/18 18:35 36.9 C 64 19 133/87 09/16/18 18:25 66 10 L 124/85 09/16/18 18:15 65 13 135/87 09/16/18 18:06 36.4 C L 76 10 L 123/92 09/16/18 16:57 36.8 C 71 16 128/84 09/16/18 15:15 37.2 C 75 18 129/86 09/16/18 10:38 72 20 151/90 H 09/16/18 10:33 37.0 C 61 20 155/103 H Pulse Ox 09/17/18 09:30 95 09/17/18 07:32 93 09/17/18 03:50 95 09/16/18 23:09 92 09/16/18 22:11 90 09/16/18 21:00 92 09/16/18 20:00 93 09/16/18 19:25 09/16/18 19:00 97 09/16/18 18:45 96 09/16/18 18:35 97 09/16/18 18:25 97 09/16/18 18:15 95 09/16/18 18:06 97 09/16/18 16:57 93 09/16/18 15:15 93 09/16/18 10:38 98 09/16/18 10:33 97 Pain Intensity Left Abdomen: Pain Intensity: 2 Notes Mental Status: alert / awake / arousable and participated in evaluation Patient Amnestic to Procedure: Yes Nausea / Vomiting: see Notes below Pain: adequately controlled Airway Patency, RR, SpO2: stable & adequate BP & HR: stable & adequate Hydration State: stable & adequate Anesthetic Complications: no major complications apparent and Pt Satisfied with anesthetic care
[2018-09-17] MEDS: CIPROFLOXACIN 500 MG TAB PO SCH ×2 (11:10→20:24)
--- NOTE | 2018-09-17 12:44 | Hospitalist Progress Note ---
Date of Service September 17, 2018 Assessment & Plan (1) Left ureteral calculus: This is a 52 year old male who has a significant PMH of kacy thyroiditis, tobacco use disorder, hx of nephrolithiasis s/p cysto and lithotripsy in 2006, NSAID/ASA allergy who presents to [facility] ED secondary to LLQ abdominal pain x 1 day. POD #1 cysto, L RPG, and ureteral stent placement. 19mm L UPJ stone remains. 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 -Normal TSH (5) Tobacco use disorder: -pt defers nicotine patch at this time (6) DVT prophylaxis: -SCDS/TEDS, pt low risk for DVT and likely to undergo procedure later today Disposition: D/C to home when able Follow up: PCP Dr. Brown upon discharge Likely go home this afternoon Subjective 52yo M POD #1 cysto, L RPG, and ureteral stent placement. 19mm L UPJ stone remains. 09/17 Patient was seen and examined in medical floor He has had some rash in the forehead and also back of the neck this morning Did not have any other symptoms with it He denies any significant pain in the abdomen and her back Gastrointestinal: + nausea; no abdominal pain, no bloating and no vomiting Physical Exam Vital Signs (Past 24 Hours): Last Vital Signs Temp 36.7 C 09/17/18 09:30 Pulse 75 09/17/18 09:30 Resp 16 09/17/18 09:30 BP 132/84 09/17/18 09:30 Pulse Ox 95 09/17/18 09:30 Physical Exam: No apparent distress at rest Constitutional: well developed and cooperative; no acute distress, + un comfortable and not lethargic Eyes: no nystagmus ENMT: external ear and nose normal, oropharynx normal Neck: normal visual inspection and trachea midline Respiratory: Auscultation: lungs clear to auscultation bilaterally Cardiovascular: Rate/Rhythm: regular rate and regular rhythm Vessels: no JVD Chest (Breasts): Chest: no mass Gastrointestinal (Abdomen): Inspection/Auscultation: abdomen normal to inspection Percussion/Palpation: + abdomen tender (Minimally tender left renal angle) and abdomen soft Musculoskeletal: Head/Neck/Chest: normocephalic and head atraumatic Skin: no rashes Neurologic: moves all extremities and awake; not confused and not obtunded Psychiatric: Orientation: alert and oriented x 3 Eye Contact: good eye contact Genitourinary: + CVA tenderness (left) Lymphatic: no lymphadenopathy Results & Data Laboratory Results Short CBC 09/17/18 Range/Units 06:56 WBC 9.88 (4.8-10.8) K/uL Hgb 13.8 L (14.0-18.0) g/dL Hct 41.2 L (42-52) % Plt Count 295 (130-400) K/uL BMP 09/17/18 06:56 Sodium 138 Potassium 3.7 Chloride 110 H Carbon Dioxide 23 BUN 11 Creatinine 0.88 Glucose 89 Calcium 7.4 L D Medications Administered Current Inpatient Medications Acetaminophen (Tylenol) 650 mg PO Q4H PRN PRN Reason: pain/fever Stop: 10/16/18 10:52 Al Hydrox/Mg Hydrox/Simethicone (Maalox) 30 ml PO Q6H PRN PRN Reason: Dyspepsia Stop: 10/16/18 10:52 Last Admin: 09/16/18 23:59 Dose: 30 ml Documented by: Ciprofloxacin (Cipro) 500 mg PO BID TASHI Stop: 09/22/18 10:29 Last Admin: 09/17/18 11:10 Dose: 500 mg Documented by: Magnesium Hydroxide (Milk Of Magnesia) 30 ml PO Q6H PRN PRN Reason: Constipation Stop: 10/16/18 10:52 Morphine Sulfate (Morphine Sulfate) 4 mg IV Q4H PRN PRN Reason: Pain Stop: 09/30/18 10:52 Last Admin: 09/16/18 11:35 Dose: 4 mg Documented by: Ondansetron HCl (Zofran) 4 mg IV Q6H PRN PRN Reason: Nausea Stop: 10/16/18 10:52 Polyethylene Glycol (Miralax Powder Packet) 17 gm PO DAILY PRN PRN Reason: Constipation Stop: 10/16/18 10:52 Potassium Citrate (Urocit-K) 10 meq PO QAM [facility] Stop: 10/17/18 12:14 Tamsulosin HCl (Flomax) 0.4 mg PO QAM [facility] Stop: 10/17/18 08:59 Last Admin: 09/17/18 08:24 Dose: 0.4 mg Documented by: (1) Hydronephrosis Hydronephrosis type: with ureteropelvic junction obstruction Qualified Code(s): Q62.11 - Congenital occlusion of ureteropelvic junction (2) Leucocytosis Leukocytosis type: unspecified Qualified Code(s): D72.829 - Elevated white blood cell count, unspecified
[2018-09-17] MEDS: POTASSIUM CITRATE 10 MEQ TAB PO SCH (13:25)
[2018-09-18] MEDS: CIPROFLOXACIN 500 MG TAB PO SCH (08:25)
[2018-09-18] MEDS: POTASSIUM CITRATE 10 MEQ TAB PO SCH (08:25)
[2018-09-18] MEDS: TAMSULOSIN HCL 0.4 MG CAP PO SCH (08:31)
--- NOTE | 2018-09-18 09:36 | Urology Progress Note ---
Date of Service September 18, 2018 Assessment & Plan (1) Left ureteral calculus: 52yo M with 19mm Left UPJ stone with moderate hydro. s/p L ureteral stent placement. Doing well. Pain controlled, tolerating PO and voiding spontaneously. Rash appears to be improved, no residual symptoms. Admin Ciprofloxacin tab this morning, seems to be tolerating well. Basic stone prevention strategies discussed. Will keep f/u appt on Friday at 11:30AM to discuss definitive stone management. Okay to d/c home from standpoint with flomax, pain control, and potassium citrate 10-15mg daily. Agree with short course of ciprofloxacin as recommended by hospitalist team. Subjective 52yo M POD #2 cysto, L RPG, and ureteral stent placement. 19mm L UPJ stone remains. VSS, afebrile Kept overnight due to new onset rash, likely due to rocephin. Pt doing well, denies residual irritation, itching. Denies throat or lip swelling. Pain controlled, mild stent irritation. Some urgency/frequency but not too bothersome. Feels he is emptying his bladder completely. Denies hematuria/dysuria. Tolerating regular diet without n/v. Physical Exam Vital Signs (Past 24 Hours): Last Vital Signs Temp 36.6 C 09/18/18 07:30 Pulse 64 09/18/18 07:30 Resp 16 09/18/18 07:30 BP 112/80 09/18/18 07:30 Pulse Ox 95 09/18/18 07:30 Physical Exam: A&Ox3 RRR Abd soft, nontender no JVD, no edema Results & Data Laboratory Results Laboratory Results - last 48 hr 09/17/18 09/17/18 06:56 06:56 WBC 9.88 RBC 4.43 L Hgb 13.8 L Hct 41.2 L MCV 93.0 MCH 31.2 MCHC 33.5 RDW Std Deviation 45.4 RDW Coeff of Hai 13.3 Plt Count 295 MPV 10.0 Immature Gran % (Auto) 0.2 Neut % (Auto) 60.7 Lymph % (Auto) 26.6 Chaves % (Auto) 9.8 Eos % (Auto) 2.4 Baso % (Auto) 0.3 Immature Gran # (Auto) 0.02 Neut # (Auto) 5.99 Lymph # (Auto) 2.63 Chaves # (Auto) 0.97 H Eos # (Auto) 0.24 Baso # (Auto) 0.03 Sodium 138 Potassium 3.7 Chloride 110 H Carbon Dioxide 23 Anion Gap 5.0 BUN 11 Creatinine 0.88 Est Cr Clr Drug Dosing 100.8 Est GFR ( Amer) 115.3 Est GFR (Non-Af Amer) 99.5 BUN/Creatinine Ratio 13.0 Glucose 89 Calcium 7.4 L D TSH 1.620
--- NOTE | 2018-09-18 11:10 | Hospitalist Progress Note ---
Date of Service September 18, 2018 Assessment & Plan (1) Left ureteral calculus: This is a 52 year old male who has a significant PMH of kacy thyroiditis, tobacco use disorder, hx of nephrolithiasis s/p cysto and lithotripsy in 2006, NSAID/ASA allergy who presents to [facility] ED secondary to LLQ abdominal pain x 1 day. POD #2 cysto, L RPG, and ureteral stent placement. 19mm L UPJ stone remains. 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 -Normal TSH (5) Tobacco use disorder: -pt defers nicotine patch at this time (6) DVT prophylaxis: -SCDS/TEDS, pt low risk for DVT and likely to undergo procedure later today Disposition: D/C to home when able Discharged today PCP appointment and appointment with urologist as an outpatient-arranged Subjective 52yo M POD #1 cysto, L RPG, and ureteral stent placement. 19mm L UPJ stone remains. 09/17 Patient was seen and examined in medical floor He has had some rash in the forehead and also back of the neck this morning Did not have any other symptoms with it He denies any significant pain in the abdomen and her back 09/18 Patient was seen and examined the medical floor His rash is much better and is almost gone He has a history of urticaria and has been on loratadine as an outpatient Denies any abdominal pain any nausea and/or vomiting Minimal discomfort when he urinates Gastrointestinal: + nausea; no abdominal pain, no bloating and no vomiting Physical Exam Vital Signs (Past 24 Hours): Last Vital Signs Temp 36.6 C 09/18/18 07:30 Pulse 64 09/18/18 07:30 Resp 16 09/18/18 07:30 BP 112/80 09/18/18 07:30 Pulse Ox 95 09/18/18 07:30 Physical Exam: No apparent distress at rest Constitutional: well developed and cooperative; no acute distress, + uncomfortable and not lethargic Eyes: no nystagmus ENMT: external ear and nose normal, oropharynx normal Ears: no hearing impairment Mouth: no TMJ abnormality Mallampati Class: II Neck: normal visual inspection and trachea midline Respiratory: no respiratory distress and does not use accessory muscles Auscultation: lungs clear to auscultation bilaterally Cardiovascular: Rate/Rhythm: regular rate and regular rhythm Vessels: no JVD Chest (Breasts): Chest: no mass Gastrointestinal (Abdomen): Inspection/Auscultation: abdomen normal to inspection Percussion/Palpation: + abdomen tender (Minimally tender left renal angle) and abdomen soft Musculoskeletal: Head/Neck/Chest: normocephalic and head atraumatic Skin: + rash (Almost resolved) Neurologic: moves all extremities and awake; not confused and not obtunded Psychiatric: Orientation: alert and oriented x 3 Eye Contact: good eye contact Genitourinary: no CVA tenderness Lymphatic: no lymphadenopathy Results & Data Medications Administered Current Inpatient Medications Acetaminophen (Tylenol) 650 mg PO Q4H PRN PRN Reason: pain/fever Stop: 10/16/18 10:52 Al Hydrox/Mg Hydrox/Simethicone (Maalox) 30 ml PO Q6H PRN PRN Reason: Dyspepsia Stop: 10/16/18 10:52 Last Admin: 09/16/18 23:59 Dose: 30 ml Documented by: Ciprofloxacin (Cipro) 500 mg PO BID TASHI Stop: 09/22/18 10:29 Last Admin: 09/18/18 08:25 Dose: 500 mg Documented by: Magnesium Hydroxide (Milk Of Magnesia) 30 ml PO Q6H PRN PRN Reason: Constipation Stop: 10/16/18 10:52 Morphine Sulfate (Morphine Sulfate) 4 mg IV Q4H PRN PRN Reason: Pain Stop: 09/30/18 10:52 Last Admin: 09/16/18 11:35 Dose: 4 mg Documented by: Ondansetron HCl (Zofran) 4 mg IV Q6H PRN PRN Reason: Nausea Stop: 10/16/18 10:52 Polyethylene Glycol (Miralax Powder Packet) 17 gm PO DAILY PRN PRN Reason: Constipation Stop: 10/16/18 10:52 Potassium Citrate ([facility]) [facility] Stop: 10/17/18 12:14 Last Admin: 09/18/18 08:25 Dose: 10 meq Documented by: Tamsulosin HCl (Flomax) [facility] Stop: 10/17/18 08:59 Last Admin: 09/18/18 08:31 Dose: 0.4 mg Documented by: (1) Hydronephrosis Hydronephrosis type: with ureteropelvic junction obstruction Qualified Code(s): Q62.11 - Congenital occlusion of ureteropelvic junction (2) Leucocytosis Leukocytosis type: unspecified Qualified Code(s): D72.829 - Elevated white blood cell count, unspecified
--- NOTE | 2018-09-18 18:05 | Discharge Summary ---
Date of Service September 18, 2018 Admission HPI Per Admitting Provider This is a 52 year old male who has a significant PMH of kacy thyroiditis, tobacco use disorder, hx of nephrolithiasis s/p cysto and lithotripsy in 2006, NSAID/ASA allergy who presents to [facility] ED secondary to LLQ abdominal pain x 1 day. Patient elicits he has been having off and on LLQ pain for the past 6 months. Long time girlfriend is at bedside. He was scheduled to get worked up as outpatient for possible diverticulitis vs kidney stone. Last evening approx 9pm he developed sharp, stabbing LLQ abdominal pain, non radiating, 8/10 at worst, nothing made better or worse. He felt chilled but denied fever or sweats. Further complains of increased urgency/freq with urination which is not abnormal for patient and nausea. He denies emesis, diarrhea, dsyuria, gross hematuria, melena, hematochezia, chest pain, sob, dizziness, lightheaded. Currently pain is 4/10 after receiving analgesia in ED. Admission Exam Per Admitting Provider Vital Signs (Past 24 Hours): Last Vital Signs Temp 36.6 C 09/16/18 06:35 Pulse 68 09/16/18 09:03 Resp 20 09/16/18 09:03 BP 101/95 09/16/18 09:03 Pulse Ox 100 09/16/18 09:03 Physical Exam: Gen: WD/WN, M, NAD, sitting up in bed, pleasant, conversing easily Head: Normocephalic, Atraumatic Eyes: Sclera normal, no conjunctival injection, PERRLA, EOMI ENT: Gross hearing intact, normal pharynx, mucous membranes moist Neck: supple, no adenopathy, No JVD, no bruit, Resp: Clear to auscultation b/l, no wheeze, rales, rhonchi. Normal insp/exp effort, no accessory muscle use CV: Regular rate, regular rhythm, no murmur, rub, gallop, or ectopy Abd: +BS x 4, soft, + LLQ tenderness to light palpation, non distended, no rebound, guarding or CVA tenderness Musculoskeletal: moves extremities active rom x 4, strength intact, good g,rip strength Extremities: No edema bilaterally Skin: warm, moist, no rash, negative turgor, cap refill < 2sec Neuro: Alert and oriented x 3, speech normal, good mood/affect, cran nerve 2-12 intact grossly : deferred Principal Diagnosis L RPG, and ureteral stent placement. 19mm L UPJ stone remains. Discharge Exam Constitutional well developed and cooperative; no acute distress, + uncomfortable and not lethargic Eyes no nystagmus ENMT external ear and nose normal, oropharynx normal Ears: no hearing impairment Mouth: no TMJ abnormality Mallampati Class: II Neck normal visual inspection and trachea midline Respiratory no respiratory distress and does not use accessory muscles Auscultation: lungs clear to auscultation bilaterally Cardiovascular Rate/Rhythm: regular rate and regular rhythm Vessels: no JVD Chest (Breasts) Chest: no mass Gastrointestinal (Abdomen) Inspection/Auscultation: abdomen normal to inspection Percussion/Palpation: + abdomen tender (Minimally tender left renal angle) and abdomen soft Musculoskeletal Head/Neck/Chest: normocephalic and head atraumatic Skin + rash (Almost resolved) Neurologic moves all extremities and awake; not confused and not obtunded Psychiatric Orientation: alert and oriented x 3 Eye Contact: good eye contact Genitourinary no CVA tenderness Lymphatic no lymphadenopathy Discharge Data Allergies Allergy/AdvReac Type Severity Reaction Status Date / Time aspirin Allergy Unknown . Verified 09/16/18 06:50 NSAIDS (Non-Steroidal Allergy Unknown hives Verified 09/16/18 06:50 Anti-Inflamma nickel Allergy Redness of Verified 09/16/18 09:51 Skin Consultations 09/16/18 09:25 ED Decision to Admit Stat 09/16/18 09:36 Consult Urology Routine Procedures Performed Operation Date: 09/16/18 15:55 Actual Procedures p Cystoscopy, Retrograde Pyelogram, Left Stent, Ureteroscopy(Left) - Mauricio Swanson MD Ordered Studies 09/16/18 08:04 CT abd pelvis wo con Stat 09/16/18 17:00 FL retrograde includes kub Routine Hospital Course (1) Left ureteral calculus: This is a 52 year old male who has a significant PMH of kacy thyroiditis, tobacco use disorder, hx of nephrolithiasis s/p cysto and lithotripsy in 2006, NSAID/ASA allergy who presents to [facility] ED secondary to LLQ abdominal pain x 1 day. POD #2 cysto, L RPG, and ureteral stent placement. 19mm L UPJ stone remains. 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 -Normal TSH (5) Tobacco use disorder: -pt defers nicotine patch at this time (6) DVT prophylaxis: -SCDS/TEDS, pt low risk for DVT and likely to undergo procedure later today Disposition: D/C to home when able Discharged today PCP appointment and appointment with urologist as an outpatient-arranged Total Time Total Time Spent Total Time Spent (In Minutes): 35 minutes Total Time Includes: Examination of the Patient, Discharge Planning, Medication Reconciliation and Communication With Other Providers Discharge Plan Discharge Items Patient Disposition: Home - Self-Care Reason For Visit: L NEPHROLITHIASIS WITH MOD HYDRONEPHROSIS Discharge Diagnosis: L RPG, and ureteral stent placement. 19mm L UPJ stone remains. Condition: Good Discharge Goals: Decrease discomfort and Improve function Activity: Resume your previous activity Non-emergency contact: Primary Care Provider Call non-emergency contact if: you have any medication questions Follow-up/Referrals: Mauricio Swanson MD [Physician] - (Follow-Up with Cherry MICHELLE on Friday, September 21 at 11:30AM ) Ken Brown [Primary Care Provider] - 09/24/18 9:25 am (Your appointment is with Dr. Prabhakar) Diet: Regular Addtl Provider Instructions: Please take all medications as prescribed and keep all follow-ups as scheduled. Please call our office at [phone] with any questions, concerns or need to reschedule appointments for any reason. We are happy to assist you. While you have a ureteral stent in place: � Some discomfort is normal. Certain movements may trigger pain or a feeling that you need to urinate. You may also feel mild soreness or pressure before or during urination. These symptoms should go away a few days after the stent is removed. � Your urine may be slightly pink or red. This is due to bleeding caused by minor irritation from the stent. This may happen on and off while you have the stent, it is not harmful and is to be expected. � Medication to help minimize discomfort or bladder spasms, or to prevent infection may be prescribed. Take this as directed. � Drink plenty of fluids to help flush out your urinary tract. � If you go home with a catheter, wash with soapy water and a fresh washcloth twice daily. We recommend mild bar soap such as Dial or Dove. How long will you need a stent? An appointment should already be made for you for stent removal, unless directed otherwise. The stent is often taken out after the blockage in the ureter is treated or the ureter has healed. This may take 1-2 weeks, or longer. If a stent is needed for a long time, it may need to be changed every few months. When to call [facility] at [phone]: � Your urine contains heavy blood clots � You are constantly leaking urine � Fever of 101�F or higher, chills, nausea, or vomiting � Your pain is not relieved with medicine � The end of the stent comes out of your urethra Prescriptions: New tamsulosin 0.4 mg Capsule 0.4 mg PO QAM 30 Days Qty: 30 RF: 0 potassium citrate 10 mEq (1,080 mg) Tablet Extended Release 10 meq PO QAM 30 Days Qty: 30 RF: 0 No Action No Known Home Medications RF: 0 Stand-Alone Forms: [facility] Discharge Orders: Discharge Order (Routine); Ordered 09/18/18 Ordered By: Ericka Christina Admission Data Admit Date/Time: 09/16/18 09:36 Attending Provider: Ericka Christina Admit Provider: Harsha Aparicio Primary Care Provider: Ken Brown Other Providers: Ericka Christina ; Mauricio Swanson Service: Medical Other Interventions: Discharge Summary Assessment (RN) Last Done: 09/18/18 13:13 DC Date/Time DO NOT enter until pt leaves facility: 09/18/18 14:02
== END 2018-09-18 14:02 | disposition home or self-care (01) | DRG 661 ==
LOC: ED 06:31 → 3W 09:36

== ENCOUNTER 2018-09-25 19:48 | Inpatient (IN) ==
[2018-09-25 20:19] LABS: Hematocrit (blood only) 44.5 % (42-52); Hemoglobin 15.6 g/dL (14.0-18.0); Mean Corpuscular Hgb Conc 35.1 g/dL (32-36); Mean Corpuscular Volume 89.9 fL (80-100); Mean Platelet Volume 9.8 fL (7.4-10.4); Platelet Count 407 K/uL (130-400); RDW Standard Deviation 42.5 fL (36.4-46.3); Red Blood Count 4.95 M/uL (4.7-6.1); White Blood Count 17.03 K/uL (4.8-10.8)
[2018-09-25 20:44] LABS: BUN Creatinine Ratio 10.3 (10-20); Calcium 8.8 mg/dl (8.5-10.1); Est GFR (African American) 70.6; Est GFR (Non-African American) 60.9; Potassium 3.8 mmol/L (3.5-5.1)
[2018-09-25] MEDS ORDERED: HYDROmorphone INJ 1 MG/ML SYRINGE IV STA ×2 (21:09→22:20)
[2018-09-25] MEDS ORDERED: ONDANSETRON INJ 2 MG/ML 2 ML VIAL IV STA (21:09)
[2018-09-25] MEDS ORDERED: SODIUM CHLORIDE 0.9% 1000ML 1,000 ML IV ONE (21:09)
--- NOTE | 2018-09-25 21:43 | CT Scan Report ---
CT SCAN OF THE ABDOMEN AND PELVIS WITHOUT CONTRAST CLINICAL HISTORY: flank pain s/p lithotripsy- Eval for hematoma COMPARISON STUDY: 09/16/2018 TECHNIQUE: CT scan of the abdomen and pelvis was performed from the lung bases to the proximal femurs . Images are reviewed in the axial, sagittal, and coronal planes. IV contrast was not administered fo r this examination. A dose lowering technique was utilized adhering to the principles of ALARA. CT DOSE: 344.79 mGy.cm FINDINGS: Lower chest: The heart is normal in size and configuration, without pericardial effusion. The lung ba ses and pleural spaces are clear. Liver: The unenhanced liver is normal in size, contour, and attenuation. There is no intrahepatic davey iary ductal dilatation. Gallbladder: Unremarkable. Spleen: Normal in size and attenuation. Pancreas: Unremarkable. Adrenal glands: Unremarkable. Kidneys: There is left-sided nephrolithiasis. There are multiple calculi fragments in the region the left renal pelvis. There is a left-sided nephroureteral stent. There is a 2 mm right renal calculus. There is mild left-sided perinephric stranding. There is markedly reduced left-sided hydronephrosis. There is a 12 x 3 x 7 cm left subcapsular hematoma. Bowel: There are no transition zones to indicate bowel obstruction. There is no acute diverticulitis. There are no findings to indicate acute appendicitis. Peritoneum: There is no intraperitoneal free air or abdominal ascites. Vasculature: The abdominal aorta is normal in course and caliber. Adenopathy: None. Pelvic viscera: The bladder, and pelvic viscera are unremarkable. Skeletal structures: No destructive osseous lesions are seen. IMPRESSION: 1. Interval left-sided lithotripsy with fragmentation of the large left renal pelvic calculus 2. Interval placement of a double-pigtail left-sided nephroureteral stent 3. Bilateral nephrolithiasis 4. Interval development of a 12 x 3 x 7 cm left renal subcapsular hematoma. Electronically signed by: Vinod Bowie M.D. 09/25/2018 9:41 PM
[2018-09-25] MEDS ORDERED: predniSONE 20 MG TAB PO STA (22:47)
[2018-09-25 22:49] LABS: Appearance Urine Clear (Clear); Bacteria Urine Automated Negative (Negative); Bilirubin Urine Negative (Negative); Blood Urine 3+ (Negative); Color Urine Yellow; Glucose Urine UA Negative (Negative); Ketones Urine 1+ (Negative); Leukocyte Esterase Urine 2+ (Negative); Nitrite Urine Negative (Negative); RBC Urine Automated >30 /hpf (0-4); Specific Gravity Urine 1.019 (1.000-1.030); Urobilinogen Urine Negative (Negative); pH Urine >= 9.0 (4.5-7.5)
[2018-09-25 22:59] LABS: Protein Urine Negative (Negative)
--- NOTE | 2018-09-25 23:25 | Emergency Department Note ---
Entered by Ann Fabian acting as a scribe for Olayinka Eckert MD History of Present Illness General Chief complaint: Flank Pain Stated complaint: SEVERE B/L FLANK PAIN, S/P LITHOTRIPSY Time Seen by Provider: 09/25/18 21:01 Source: patient History of Present Illness Onset (ago): hour(s) 7 Location: left (flank pain) Severity: severe Pain Consistency: + other (worsening) Maximum Pain Intensity: 10 Relieved By: + none Associated symptoms: + fever/chills (negative fever, positive chills), + nausea/vomiting and + other (lots of blood in urine) The patient is a 52 year old M who presents to the Emergency Room with complaints of worsening left flank pain starting 7 hours ago. He states that he had a lithotripsy this morning. He states that he is currently is a lot of pain. He notes that he took 2 pills of oxycodone today. He states that he is currently experiencing chills, nausea, vomiting, and lots of blood in urine. The pain is severe and nothing makes it beteer or worse. No fever or dysuria. No cheast pain or shortness of breath. Home Medications Home Medications Medication Instructions Recorded Confirmed Type potassium citrate 10 meq PO QAM 30 Days #30 tab 09/18/18 09/25/18 Rx tamsulosin 0.4 mg PO QAM 30 Days #30 cap 09/18/18 09/25/18 Rx loratadine 10 mg PO DAILY PRN 09/23/18 09/25/18 History hydrocodone-acetaminophen 1 tab PO Q6H PRN #20 tab 09/25/18 09/25/18 Rx folic acid 1 mg PO QAM 30 Days #30 tab 09/26/18 Rx thiamine HCl (vitamin B1) [Vitamin 100 mg PO QAM 30 Days #30 tab 09/26/18 Rx B-1] Allergies Allergy/AdvReac Type Severity Reaction Status Date / Time aspirin Allergy Mild Hives Verified 09/25/18 09:30 nickel Allergy Mild Redness of Verified 09/25/18 09:30 Skin NSAIDS (Non-Steroidal Allergy Mild hives Verified 09/25/18 09:30 Anti-Inflamma Past Med/Surg History Medical History 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) currently no meds Tobacco use disorder (Chronic) Allergy to NSAIDs (Chronic) BPH (benign prostatic hyperplasia) Kidney stones Surgical History History of colonoscopy with polypectomy (Resolved) H/O nasal polypectomy (Resolved) H/O lithotripsy (Resolved) History of cystoscopy with stent placement History of surgery meatotomy as a child History of wisdom tooth extraction Family History Father Colon carcinoma metastatic to lung Family hx of colon cancer from colon cancer Mother Emphysema of lung Sister Bipolar disorder Other No family history of adverse response to anesthesia Social History Preferred Language: Yak[place] Beliefs That Will Affect Care: Denominational marital status: Single marital status details: Has long time girlfriend Current Living Situation: Significant Other current occupational status: disabled Other Information That Helps Us Care for You: No Feels Safe at Home: Yes Safety Concerns: Feels Safe At This Time Smoking Status: Current every day smoker Hx Alcohol Use: Yes Hx Substance Use: No Review of Systems See HPI for pertinent positives & negatives. and A total of 10 systems reviewed and were otherwise negative Physical Exam Vital Signs Vital Signs - 24 hr 09/25/18 19:56 09/25/18 21:35 09/25/18 23:18 Temperature 36.5 C Temperature Source Oral Sepsis Recent Fever Within 48 Hours No Sepsis New/Unexplained Change in Mental Status No Sepsis Action Taken by Nursing No Action Required Pulse Rate 66 Pulse Rate [Right Finger] 75 81 Pulse Rhythm [Right Finger] Regular Pulse Strength [Right Finger] Normal Respiratory Rate 18 18 18 Respiratory Effort / Characteristics Non-Labored Respiratory Depth Normal Respiratory Pattern Regular Blood Pressure 141/94 H Blood Pressure [Right Arm] 134/90 137/87 Blood Pressure Mean 109 Blood Pressure Mean [Right Arm] 104 103 Blood Pressure Position [Right Arm] Lying Pulse Oximetry 97 92 92 Oxygen Delivery Method Room Air Room Air 09/26/18 01:11 09/26/18 02:15 09/26/18 07:00 Temperature 36.7 C 36.9 C Temperature Source Oral Oral Sepsis Recent Fever Within 48 Hours Sepsis New/Unexplained Change in Mental Status Sepsis Action Taken by Nursing Pulse Rate Pulse Rate [Right Finger] 74 64 71 Pulse Rhythm [Right Finger] Pulse Strength [Right Finger] Respiratory Rate 18 18 18 Respiratory Effort / Characteristics Non-Labored Spontaneous Respiratory Depth Normal Respiratory Pattern Regular Blood Pressure Blood Pressure [Right Arm] 148/97 H 130/86 138/80 Blood Pressure Mean Blood Pressure Mean [Right Arm] 114 100 99 Blood Pressure Position [Right Arm] Sitting Lying Pulse Oximetry 96 94 94 Oxygen Delivery Method Room Air Room Air Room Air 09/26/18 14:19 09/26/18 15:40 Temperature 36.9 C 36.9 C Temperature Source Oral Sepsis Recent Fever Within 48 Hours Sepsis New/Unexplained Change in Mental Status Sepsis Action Taken by Nursing Pulse Rate Pulse Rate [Right Finger] 71 66 Pulse Rhythm [Right Finger] Pulse Strength [Right Finger] Respiratory Rate 18 18 Respiratory Effort / Characteristics Respiratory Depth Respiratory Pattern Blood Pressure Blood Pressure [Right Arm] 138/80 141/97 H Blood Pressure Mean Blood Pressure Mean [Right Arm] 111 Blood Pressure Position [Right Arm] Lying Pulse Oximetry 94 98 Oxygen Delivery Method Room Air General: Uncomfortable appearing middle-aged M in no acute distress. HEENT: Normal cephalic atraumatic. Pupils are equal round and reactive to light. Extraocular movements are intact. Oropharynx is pink with moist mucous membranes. No swelling of the mouth lips or tongue. Neck: Supple with a midline trachea. No meningeal signs or stiffness, no JVD or bruits. No Stridor. Chest: Clear to auscultation bilaterally. No wheezes or rhonchi. No increased work of breathing. Heart: regular rate and rhythm. Abdomen: Soft nontender, nondistended without rebound guarding or rigidity. Extremities: No cyanosis clubbing or edema. No calf tenderness or assymetry Spine/Back. Non tender to palpation. No CVA tenderness Skin: Good turgor without rashes. Neurologic exam: Cranial nerves two through 12 are intact. Motor and sensation are intact and symmetrical throughout. Course 2106: Past medical records reviewed. The patient was evaluated in room C5, and a complete history and physical examination were performed. 2132: I reviewed the patient's case with Dr. Johnson, [facility]. He wants a CAT scan done for the patient. 2119: I let the patient know of the plan. 2201: The patient is doing better. 2246: The patient is doing better with the second round of pain medications but he thinks that he needs to stay for more pain medications. 2308: I reviewed the patient's case with Dr. Farhan Norton, [facility] Hospitalist. He will evaluate the patient for further management. Consultations Consultation #1: I reviewed the patient's case with Dr. Johnson, [facility]. He wants a CAT scan done for the patient. Time: 21:33 Consultation #2: I reviewed the patient's [facility] He will evaluate the patient for further management. Time: 23:08 Administered Medications Discontinued Medications Famotidine (Pepcid) 20 mg PO BID TASHI Stop: 10/26/18 11:14 Last Admin: 09/26/18 12:12 Dose: 20 mg Documented by: [id number] Gabapentin (Neurontin) 600 mg PO Q6H TASHI Stop: 09/26/18 14:01 Last Admin: 09/26/18 13:29 Dose: 600 mg Documented by: [id number] Admin: 09/26/18 09:06 Dose: 600 mg Documented by: [id number] Gabapentin (Neurontin) 1,200 mg PO ONE ONE Stop: 09/26/18 03:01 Last Admin: 09/26/18 03:06 Dose: 1,200 mg Documented by: [id number] Hydromorphone HCl (Dilaudid) 1 mg IV NOW STA Stop: 09/25/18 21:10 Last Admin: 09/25/18 21:16 Dose: 1 mg Documented by: [id number] Hydromorphone HCl (Dilaudid) 1 mg IV NOW STA Stop: 09/25/18 22:21 Last Admin: 09/25/18 22:25 Dose: 1 mg Documented by: [id number] Hydromorphone HCl (Dilaudid) 1 mg IV NOW STA Stop: 09/26/18 01:30 Last Admin: 09/26/18 01:37 Dose: 1 mg Documented by: [id number] Hydromorphone HCl (Dilaudid) Confirm Administered Dose 1 mg .ROUTE .STK-MED ONE Stop: 09/26/18 01:35 Last Admin: 09/26/18 01:38 Dose: Not Given Documented by: [id number] Hydromorphone HCl (Dilaudid) 0.5 mg IV Q3H PRN PRN Reason: Pain Stop: 10/10/18 02:17 Last Admin: 09/26/18 13:31 Dose: 0.5 mg Documented by: [id number] Admin: 09/26/18 09:35 Dose: 0.5 mg Documented by: [id number] Sodium Chloride (Nss 1000ml) 1,000 mls @ 999 mls/hr IV .Q1H1M ONE Stop: 09/25/18 22:09 Last Infusion: 09/25/18 22:15 Dose: 0 mls/hr Documented by: [id number] Admin: 09/25/18 21:17 Dose: 999 mls/hr Documented by: [id number] Potassium Chloride/Sodium Chloride (Normal Saline W/20 Meq Kcl) 20 meq in 1,000 mls @ 250 mls/hr IV .Q4H ONE Stop: 09/26/18 05:14 Last Infusion: 09/26/18 05:25 Dose: 0 mls/hr Documented by: [id number] Admin: 09/26/18 01:25 Dose: 250 mls/hr Documented by: [id number] Multivitamins 10 ml/ Thiamine HCl 100 mg/ Folic Acid 1 mg/Potassium Chloride 20 meq/Sodium Chloride 1,021.2 mls @ 80 mls/hr IV .[id number] TASHI Stop: 09/26/18 16:23 Last Admin: 09/26/18 05:25 Dose: 80 mls/hr Documented by: [id number] Ondansetron HCl (Zofran) 4 mg IV NOW STA Stop: 09/25/18 21:10 Last Admin: 09/25/18 21:17 Dose: 4 mg Documented by: [id number] Prednisone (Prednisone) 60 mg PO NOW STA Stop: 09/25/18 22:48 Last Admin: 09/25/18 22:49 Dose: Not Given Documented by: [id number] Simethicone (Mylicon) 80 mg PO ONE ONE Stop: 09/26/18 06:01 Last Admin: 09/26/18 06:26 Dose: 80 mg Documented by: [id number] Tamsulosin HCl (Flomax) [facility] [place] Stop: 10/26/18 08:59 Last Admin: 09/26/18 09:05 Dose: 0.4 mg Documented by: [id number] Medical Decision Making Differential Diagnosis Differential Diagnosis includes: renal colic infection, electrolyte or metabolic abnormality Medical Records Attestation: I reviewed the patient's medical records. Home Medications Current Medication List: was personally reviewed by me Laboratory Data Attestation: I reviewed the patient's lab results. Result diagrams: 09/26/18 05:39 09/26/18 05:39 Lab Results 09/25/18 09/25/18 09/25/18 Range/Units 20:05 20:05 22:13 WBC 17.03 H (4.8-10.8) K/uL RBC 4.95 (4.7-6.1) M/uL Hgb 15.6 (14.0-18.0) g/dL Hct 44.5 (42-52) % MCV 89.9 (80-100) fL MCH 31.5 (25-34) pg MCHC 35.1 (32-36) g/dL RDW Std Deviation 42.5 (36.4-46.3) fL RDW Coeff of Hai 13.0 (11.5-14.5) % Plt Count 407 H (130-400) K/uL MPV 9.8 (7.4-10.4) fL Immature Gran % (Auto) % Neut % (Auto) % Lymph % (Auto) % [place] % (Auto) % Eos % (Auto) % Baso % (Auto) % Immature Gran # (Auto) (0.00-0.02) K/uL Neut # (Auto) (1.4-6.5) K/uL Lymph # (Auto) (1.2-3.4) K/uL [place] # (Auto) (0.11-0.59) K/uL Eos # (Auto) (0-0.5) K/uL Baso # (Auto) (0-0.2) K/uL Sodium 136 (136-145) mmol/L Potassium 3.8 (3.5-5.1) mmol/L Chloride 105 (98-107) mmol/L Carbon Dioxide 22 (21-32) mmol/L Anion Gap 9.0 (3-11) BUN 14 (7-18) mg/dl Creatinine 1.34 (0.6-1.4) mg/dl Est Cr Clr Drug Dosing 61.0 ml/min Est GFR ( Amer) 70.6 Est GFR (Non-Af Amer) 60.9 BUN/Creatinine Ratio 10.3 (10-20) Glucose 119 H (70-99) mg/dl Calcium 8.8 (8.5-10.1) mg/dl Magnesium 2.0 (1.8-2.4) mg/dl Urine Color Yellow Urine Appearance Clear (Clear) Urine pH >= 9.0 H (4.5-7.5) Ur Specific [place] 1.019 (1.000-1.030) Urine Protein Negative (Negative) Urine Glucose (UA) Negative (Negative) Urine Ketones 1+ H (Negative) Urine Blood 3+ H (Negative) Urine Nitrite Negative (Negative) Urine Bilirubin Negative (Negative) Urine Urobilinogen Negative (Negative) Ur Leukocyte Esterase 2+ H (Negative) Urine WBC (Auto) 10-30 H (0-5) /hpf Urine RBC (Auto) >30 H (0-4) /hpf U Hyaline Cast (Auto) 1-5 (0-5) /lpf U Epithel Cells (Auto) 10-20 H (0-5) /lpf Urine Bacteria (Auto) Negative (Negative) Blood Type Antibody Screen 09/26/18 09/26/18 09/26/18 Range/Units 05:39 05:39 05:39 WBC 15.51 H (4.8-10.8) K/uL RBC 4.32 L (4.7-6.1) M/uL Hgb 13.5 L (14.0-18.0) g/dL Hct 39.7 L (42-52) % MCV 91.9 (80-100) fL MCH 31.3 (25-34) pg MCHC 34.0 (32-36) g/dL RDW Std Deviation 43.9 (36.4-46.3) fL RDW Coeff of Hai 13.1 (11.5-14.5) % Plt Count 367 (130-400) K/uL MPV 9.8 (7.4-10.4) fL Immature Gran % (Auto) 0.4 % Neut % (Auto) 77.6 % Lymph % (Auto) 13.2 % [place] % (Auto) 8.5 % Eos % (Auto) 0.2 % Baso % (Auto) 0.1 % Immature Gran # (Auto) 0.06 H (0.00-0.02) K/uL Neut # (Auto) 12.05 H (1.4-6.5) K/uL Lymph # (Auto) 2.04 (1.2-3.4) K/uL [place] # (Auto) 1.32 H (0.11-0.59) K/uL Eos # (Auto) 0.03 (0-0.5) K/uL Baso # (Auto) 0.01 (0-0.2) K/uL Sodium 139 (136-145) mmol/L Potassium 3.9 (3.5-5.1) mmol/L Chloride 107 (98-107) mmol/L Carbon Dioxide 28 (21-32) mmol/L Anion Gap 4.0 (3-11) BUN 13 (7-18) mg/dl Creatinine 1.31 (0.6-1.4) mg/dl Est Cr Clr Drug Dosing 67.6 ml/min Est GFR ( Amer) 72.5 Est GFR (Non-Af Amer) 62.6 BUN/Creatinine Ratio 9.8 L (10-20) Glucose 104 H (70-99) mg/dl Calcium 7.8 L (8.5-10.1) mg/dl Magnesium (1.8-2.4) mg/dl Urine Color Urine Appearance (Clear) Urine pH (4.5-7.5) Ur Specific [place] (1.000-1.030) Urine Protein (Negative) Urine Glucose (UA) (Negative) Urine Ketones (Negative) Urine Blood (Negative) Urine Nitrite (Negative) Urine Bilirubin (Negative) Urine Urobilinogen (Negative) Ur Leukocyte Esterase (Negative) Urine WBC (Auto) (0-5) /hpf Urine RBC (Auto) (0-4) /hpf U Hyaline Cast (Auto) (0-5) /lpf U Epithel Cells (Auto) (0-5) /lpf Urine Bacteria (Auto) (Negative) Blood Type A Positive Antibody Screen NEGATIVE Imaging Data Radiologist's Impression: Radiology results as stated below per my review and the radiologist's interpretation: CT SCAN OF THE ABDOMEN AND PELVIS WITHOUT CONTRAST CLINICAL HISTORY: flank pain s/p lithotripsy- Eval for hematoma COMPARISON STUDY: 09/16/2018 TECHNIQUE: CT scan of the abdomen and pelvis was performed from the lung bases to the proximal femurs. Images are reviewed in the axial, sagittal, and coronal planes. IV contrast was not administered for this examination. A dose lowering technique was utilized adhering to the principles of ALARA. CT DOSE: 344.79 mGy.cm FINDINGS: Lower chest: The heart is normal in size and configuration, without pericardial effusion. The lung bases and pleural spaces are clear. Liver: The unenhanced liver is normal in size, contour, and attenuation. There is no intrahepatic biliary ductal dilatation. Gallbladder: Unremarkable. Spleen: Normal in size and attenuation. Pancreas: Unremarkable. Adrenal glands: Unremarkable. Kidneys: There is left-sided nephrolithiasis. There are multiple calculi fragments in the region the left renal pelvis. There is a left-sided nephroureteral stent. There is a 2 mm right renal calculus. There is mild left- sided perinephric stranding. There is markedly reduced left-sided hydronephrosis. There is a 12 x 3 x 7 cm left subcapsular hematoma. Bowel: There are no transition zones to indicate bowel obstruction. There is no acute diverticulitis. There are no findings to indicate acute appendicitis. Peritoneum: There is no intraperitoneal free air or abdominal ascites. Vasculature: The abdominal aorta is normal in course and caliber. Adenopathy: None. Pelvic viscera: The bladder, and pelvic viscera are unremarkable. Skeletal structures: No destructive osseous lesions are seen. IMPRESSION: 1. Interval left-sided lithotripsy with fragmentation of the large left renal pelvic calculus 2. Interval placement of a double-pigtail left-sided nephroureteral stent 3. Bilateral nephrolithiasis 4. Interval development of a 12 x 3 x 7 cm left renal subcapsular hematoma. Electronically signed by: Vinod Bowie M.D. 09/25/2018 9:41 PM Blood Pressure Blood Pressure Findings: Normal blood pressure Blood Pressure Disposition: did not require urgent referral MDM Narrative This patient comes in as described above. He is having left flank pain status post lithotripsy. He also had a stent placed. He appears very uncomfortable initially. IV access established and he was hydrated with a 1 L IV normal saline bolus. blood work was obtained. he was given Dilaudid 1 mg IV and Zofran 4 mg IV this helped his pain for about 45 minutes then it came back and he was given additional Dilaudid 1 mg IV. His white count is elevated however he has no fever. He has normal renal function. I did a CT stone study and he has a subcapsular hematoma that is 12 cm in the greatest dimension. I did discuss this with Dr. Johnson who is his urologist, who feels that this can be observed and does not need acute intervention. Because the patient has had significant amount of pain and requirement of narcotics. I do think he needs to be admitted/observed in the hospital the patient and his significant other agree. I have consulted Dr. Gregory who saw the patient in the ER for these measures. Impression & Plan Renal colic, History of lithotripsy, Left ureteral calculus, Closed hematoma of left kidney, Acute left flank pain Discharge Plan Visit Data *Final* Discharge Date/Time: 09/26/18 01:56 Chief Complaint: Flank Pain Stated Complaint: SEVERE B/L FLANK PAIN, S/P LITHOTRIPSY ED Provider: Olayinka Eckert Discharge Problem: Renal colic, History of lithotripsy, Left ureteral calculus, Closed hematoma of left kidney, Acute left flank pain Patient Disposition: Admitted As Inpatient Discharge Instructions Interventions: ED Discharge Assessment Last Done: 09/26/18 01:56 The scribe's documentation has been prepared under my direction and personally reviewed by me in its entirety. I confirm that the note above accurately reflects all work, treatment, procedures, and medical decision making performed by me.
[2018-09-26] MEDS ORDERED: NSS + 20MEQ KCL 20 MEQ/1,000 ML BAG IV ONE (01:15)
[2018-09-26] MEDS ORDERED: HYDROmorphone INJ 1 MG/ML SYRINGE IV STA (01:29)
--- NOTE | 2018-09-26 01:30 | History & Physical Report ---
Date of Service September 26, 2018 Assessment & Plan (1) Kidney hematoma without rupture of capsule, without open wound into cavity: Recent history ESWL for urolithiasis Hemoglobin stable Hypothyroidism, euthyroid as of recent TSH Ongoing tobacco abuse Ongoing alcohol abuse, patient admits to intermittent binge drinking [facility] Urology consult RE left renal capsule hematoma (ER provider already in touch with Dr. Johnson.) Nicotine patch as needed DT precautions DVT prophylaxis. SCDs RE kidney hematoma Full code History of Present Illness Chief Complaint: Flank pain left Primary Care Provider: Ken Brown History obtained from patient and records. Medical history significant for urolithiasis, hypothyroidism, ongoing tobacco alcohol abuse as per records. Recent confinement last week for left ureteral calculus status post ureteral stent placement. Yesterday, patient underwent left ESWL outpatient by [facility]. Upon arrival home patient noted worsening achy left flank pain symptoms with nausea and emesis. No chest pain, no S OB, no fever, no chills. Gross hematuria noted and was told to expect. Intractable pain at the emergency room. Allergies Allergy/AdvReac Type Severity Reaction Status Date / Time aspirin Allergy Mild Hives Verified 09/25/18 09:30 nickel Allergy Mild Redness of Verified 09/25/18 09:30 Skin NSAIDS (Non-Steroidal Allergy Mild hives Verified 09/25/18 09:30 Anti-Inflamma Home Medications Home Medications Medication Instructions Recorded Confirmed Type potassium citrate 10 meq PO QAM 30 Days #30 tab 09/18/18 09/25/18 Rx tamsulosin 0.4 mg PO QAM 30 Days #30 cap 09/18/18 09/25/18 Rx loratadine 10 mg PO DAILY PRN 09/23/18 09/25/18 History hydrocodone-acetaminophen 1 tab PO Q6H PRN #20 tab 09/25/18 09/25/18 Rx folic acid 1 mg PO QAM 30 Days #30 tab 09/26/18 Rx thiamine HCl (vitamin B1) [Vitamin 100 mg PO QAM 30 Days #30 tab 09/26/18 Rx B-1] Past Med/Surg History Medical History 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) currently no meds Tobacco use disorder (Chronic) Allergy to NSAIDs (Chronic) BPH (benign prostatic hyperplasia) Kidney stones Surgical History History of colonoscopy with polypectomy (Resolved) H/O nasal polypectomy (Resolved) H/O lithotripsy (Resolved) History of cystoscopy with stent placement History of surgery meatotomy as a child History of wisdom tooth extraction Family History Father Colon carcinoma metastatic to lung Family hx of colon cancer from colon cancer Mother Emphysema of lung Sister Bipolar disorder Other No family history of adverse response to anesthesia Social History Preferred Language: [place] Beliefs That Will Affect Care: Religion marital status: Single marital status details: Has long time girlfriend Current Living Situation: Significant Other current occupational status: disabled Other Information That Helps Us Care for You: No Feels Safe at Home: Yes Safety Concerns: Feels Safe At This Time Smoking Status: Current every day smoker Hx Alcohol Use: Yes Hx Substance Use: No Review of Systems As per HPI, all 10 systems reviewed, all other ROS negative Physical Exam Vital Signs (Past 24 Hours): Last Vital Signs Temp 36.5 C 09/25/18 19:56 Pulse 74 09/26/18 01:11 Resp 18 09/26/18 01:11 BP 148/97 H 09/26/18 01:11 Pulse Ox 96 09/26/18 01:11 Physical Exam: GENERAL: uncomfortable, no respiratory distress SKIN: Normal color, warm HEENT: [place] palpebral conjunctivae, no ptosis, dry buccal mucosa NECK : Supple, short neck, no tenderness CHEST : CTA, no tenderness HEART : RRR, no obvious murmurs ABDOMEN: Some distention, nontender Back: Left flank tenderness EXTREMITIES : No LE swelling/tenderness, no other conspicuous deformities noted NEUROLOGIC : Coherent, no facial asymmetry, no other gross focality Results & Data Laboratory Results CT abdomen pelvis: 1. Interval left-sided lithotripsy with fragmentation of the large left renal pelvic calculus 2. Interval placement of a double-pigtail left-sided nephroureteral stent 3. Bilateral nephrolithiasis 4. Interval development of a 12 x 3 x 7 cm left renal subcapsular hematoma. Diagnostic Findings Laboratory Results WBC 17.03 K/uL (4.8-10.8) H 09/25/18 20:05 RBC 4.95 M/uL (4.7-6.1) 09/25/18 20:05 Hgb 15.6 g/dL (14.0-18.0) 09/25/18 20:05 Hct 44.5 % (42-52) 09/25/18 20:05 MCV 89.9 fL (80-100) 09/25/18 20:05 MCH 31.5 pg (25-34) 09/25/18 20:05 MCHC 35.1 g/dL (32-36) 09/25/18 20:05 RDW Std Deviation 42.5 fL (36.4-46.3) 09/25/18 20:05 RDW Coeff of Hai 13.0 % (11.5-14.5) 09/25/18 20:05 Plt Count 407 K/uL (130-400) H 09/25/18 20:05 MPV 9.8 fL (7.4-10.4) 09/25/18 20:05 Sodium 136 mmol/L (136-145) 09/25/18 20:05 Potassium 3.8 mmol/L (3.5-5.1) 09/25/18 20:05 Chloride 105 mmol/L (98-107) 09/25/18 20:05 Carbon Dioxide 22 mmol/L (21-32) 09/25/18 20:05 Anion Gap 9.0 (3-11) 09/25/18 20:05 BUN 14 mg/dl (7-18) 09/25/18 20:05 Creatinine 1.34 mg/dl (0.6-1.4) 09/25/18 20:05 Est Cr Clr Drug Dosing 61.0 ml/min 09/25/18 20:05 Est GFR ( Amer) 70.6 09/25/18 20:05 Est GFR (Non-Af Amer) 60.9 09/25/18 20:05 BUN/Creatinine Ratio 10.3 (10-20) 09/25/18 20:05 Glucose 119 mg/dl (70-99) H 09/25/18 20:05 Calcium 8.8 mg/dl (8.5-10.1) 09/25/18 20:05 Urine Color Yellow 09/25/18 22:13 Urine Appearance Clear (Clear) 09/25/18 22:13 Urine pH >= 9.0 (4.5-7.5) H 09/25/18 22:13 Ur Specific [place] 1.019 (1.000-1.030) 09/25/18 22:13 Urine Protein Negative (Negative) 09/25/18 22:13 Urine Glucose (UA) Negative (Negative) 09/25/18 22:13 Urine Ketones 1+ (Negative) H 09/25/18 22:13 Urine Blood 3+ (Negative) H 09/25/18 22:13 Urine Nitrite Negative (Negative) 09/25/18 22:13 Urine Bilirubin Negative (Negative) 09/25/18 22:13 Urine Urobilinogen Negative (Negative) 09/25/18 22:13 Ur Leukocyte Esterase 2+ (Negative) H 09/25/18 22:13 Urine WBC (Auto) 10-30 /hpf (0-5) H 09/25/18 22:13 Urine RBC (Auto) >30 /hpf (0-4) H 09/25/18 22:13 U Hyaline Cast (Auto) 1-5 /lpf (0-5) 09/25/18 22:13 U Epithel Cells (Auto) 10-20 /lpf (0-5) H 09/25/18 22:13 Urine Bacteria (Auto) Negative (Negative) 09/25/18 22:13
[2018-09-26] MEDS ORDERED: HYDROmorphone INJ 1 MG/ML SYRINGE ONE (01:34)
[2018-09-26] MEDS ORDERED: LORazepam 2 MG/4 ML VIAL IV PRN (02:18)
[2018-09-26] MEDS ORDERED: HYDROCODONE/ACETAMOPHEN 5/325MG TAB PO PRN (02:18)
[2018-09-26] MEDS ORDERED: ATIVAN IV ALCOHOL WITHDRAWL IV SCH (02:18)
[2018-09-26] MEDS ORDERED: LORazepam 1 MG/2 ML VIAL IV PRN (02:18)
[2018-09-26] MEDS ORDERED: LORATADINE 10 MG TAB PO PRN (02:18)
[2018-09-26] MEDS ORDERED: GABAPENTIN 1200MG ALCOHOL WITHDRAWAL LOAD PO STA (02:18)
[2018-09-26] MEDS ORDERED: PROCHLORPERAZINE 5 MG in SYRINGE 4 ML IV PRN (02:18)
[2018-09-26] MEDS ORDERED: LORazepam 3 MG/6 ML VIAL IV PRN (02:18)
[2018-09-26] MEDS ORDERED: GABAPENTIN 600 MG TAB PO ONE (03:00)
[2018-09-26] MEDS ORDERED: MULTI-VITAMIN INFUSION 10 ML, THIAMINE HCL 100 MG, FOLIC ACID 1 MG, POTASSIUM CHLORIDE ... IV SCH (03:45)
[2018-09-26] MEDS ORDERED: SIMETHICONE 80 MG CHEW PO ONE (06:00)
[2018-09-26 06:22] LABS: Basophils # (auto) 0.01 K/uL (0-0.2); Basophils % (auto) 0.1 %; Eosinophils # (auto) 0.03 K/uL (0-0.5); Eosinophils % (auto) 0.2 %; Hematocrit (blood only) 39.7 % (42-52); Hemoglobin 13.5 g/dL (14.0-18.0); Immature Granulocytes # (auto) 0.06 K/uL (0.00-0.02); Immature Granulocytes % (auto) 0.4 %; Lymphocytes # (auto) 2.04 K/uL (1.2-3.4); Lymphocytes % (auto) 13.2 %; Mean Corpuscular Volume 91.9 fL (80-100); Mean Platelet Volume 9.8 fL (7.4-10.4); Monocytes # (auto) 1.32 K/uL (0.11-0.59); Monocytes % (auto) 8.5 %; Neutrophils # (auto) 12.05 K/uL (1.4-6.5); Neutrophils % (auto) 77.6 %; Platelet Count 367 K/uL (130-400); RDW Coefficient of Variation 13.1 % (11.5-14.5); RDW Standard Deviation 43.9 fL (36.4-46.3); Red Blood Count 4.32 M/uL (4.7-6.1); White Blood Count 15.51 K/uL (4.8-10.8)
[2018-09-26 07:00] LABS: BUN Creatinine Ratio 9.8 (10-20); Calcium 7.8 mg/dl (8.5-10.1); Creatinine Clr Calc Pharmacy 67.6 ml/min; Est GFR (African American) 72.5; Est GFR (Non-African American) 62.6; Potassium 3.9 mmol/L (3.5-5.1)
[2018-09-26] MEDS ORDERED: TAMSULOSIN HCL 0.4 MG CAP PO SCH (09:00)
[2018-09-26] MEDS: GABAPENTIN 600 MG TAB PO SCH ×2 (09:06→13:29)
[2018-09-26] MEDS: HYDROmorphone INJ 0.5 MG/0.5 ML SYR IV PRN ×2 (09:35→13:31)
--- NOTE | 2018-09-26 09:54 | Urology Consultation ---
Date of Consultation September 26, 2018 Assessment & Plan (1) Renal hematoma: subcapsular hematoma s/p ESWL - hemodynamically stable - conservative management - short term outpt f/u - pos d/c home later today if pain tolerable History of Present Illness Attending Physician: Harsha Aparicio MD Pt s/p L ESWL for large left renal pelvis stone - prior ureteral stent placement - severe pain starting 2 hrs after procedure - ultimately returned to the ER - CT: subcapsular hematoma - hemodynamically stable - stone appears to have fragmented with the treatment - subjectively, far improved today - ambulating, pain tolerable Allergies Allergy/AdvReac Type Severity Reaction Status Date / Time aspirin Allergy Mild Hives Verified 09/25/18 09:30 nickel Allergy Mild Redness of Verified 09/25/18 09:30 Skin NSAIDS (Non-Steroidal Allergy Mild hives Verified 09/25/18 09:30 Anti-Inflamma Home Medications Home Medications Medication Instructions Recorded Confirmed Type potassium citrate 10 meq PO QAM 30 Days #30 tab 09/18/18 09/25/18 Rx tamsulosin 0.4 mg PO QAM 30 Days #30 cap 09/18/18 09/25/18 Rx loratadine 10 mg PO DAILY PRN 09/23/18 09/25/18 History hydrocodone-acetaminophen 1 tab PO Q6H PRN #20 tab 09/25/18 09/25/18 Rx Patient History Medical History 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) currently no meds Tobacco use disorder (Chronic) Allergy to NSAIDs (Chronic) BPH (benign prostatic hyperplasia) Kidney stones Surgical History History of colonoscopy with polypectomy (Resolved) H/O nasal polypectomy (Resolved) H/O lithotripsy (Resolved) History of cystoscopy with stent placement History of surgery meatotomy as a child History of wisdom tooth extraction Family History Father Colon carcinoma metastatic to lung Family hx of colon cancer from colon cancer Mother Emphysema of lung Sister Bipolar disorder Other No family history of adverse response to anesthesia Social History Preferred Language: Cape Verdean Communication Ability: Effective Foundry Molder Required: No Beliefs That Will Affect Care: Episcopalian marital status: Single marital status details: Has long time girlfriend Current Living Situation: Significant Other Other Information That Helps Us Care for You: No Feels Safe at Home: Yes Safety Concerns: Feels Safe At This Time Smoking Status: Current every day smoker Hx Alcohol Use: Yes Hx Substance Use: No Review of Systems Constitutional: as per Subjective / HPI; no fever and no sweats Respiratory: no cough and no dyspnea Cardiovascular: no chest pain and no dyspnea Gastrointestinal: no abdominal pain and no nausea Genitourinary (Male): + flank pain Musculoskeletal: + back pain; no neck pain Integumentary: no rash Endocrine: no fatigue Physical Exam Vital Signs (Past 24 Hours): Last Vital Signs Temp 36.9 C 09/26/18 07:00 Pulse 71 09/26/18 07:00 Resp 18 09/26/18 07:00 BP 138/80 09/26/18 07:00 Pulse Ox 94 09/26/18 07:00 Physical Exam: NAD AAOx3 no resp distress RRR abd soft no adenopathy no rashes moderate left CVA tenderness no edema urine clear
[2018-09-26] MEDS ORDERED: FAMOTIDINE 20 MG TAB PO SCH (11:15)
--- NOTE | 2018-09-26 14:20 | Hospitalist Progress Note ---
Date of Service September 26, 2018 Assessment & Plan (1) Kidney hematoma without rupture of capsule, without open wound into cavity: Renal subcapular Hematoma S/P Recent ESWL for urolithiasis --CT ABD: Interval left-sided lithotripsy with fragmentation of the large left renal pelvic calculus. Interval placement of a double-pigtail left-sided nephroureteral stent. Bilateral nephrolithiasis. Interval development of a 12 x 3 x 7 cm left renal subcapsular hematoma. --conservative management --Pain control --Appreciate Urology Input --Hb stable --Needs follow up with Urology upon discharge Hypothyroidism TSH normal on 09/17/18 Ongoing tobacco abuse Ongoing alcohol abuse Consel to quit DT precautions Continue thiamine, folic acid DVT Px: SCDs RE renal hematoma Code Status Full code Subjective Patient is seen and examined at bedside Doing better today Mild LLQ abd pain Hematuria resolving Reports heartburn Denies chest pain, SOB, dizziness Offers no other complaints Physical Exam Vital Signs (Past 24 Hours): Last Vital Signs Temp 36.9 C 09/26/18 07:00 Pulse 71 09/26/18 07:00 Resp 18 09/26/18 07:00 BP 138/80 09/26/18 07:00 Pulse Ox 94 09/26/18 07:00 Physical Exam: Physical Exam: Vitals signs as noted above General Appearance:Moderately built and nourished, no apparent distress Head: normocephalic, Atraumatic Eyes: normal inspection, EOMI Neck: supple, Trachea midline Respiratory/Chest: Normal breath sounds, CTA Cardiovascular: S1, S2, No murmur Abdomen/GI:Soft, mild left CVA tender, Bowel sounds present Extremities/Musculoskelatal:normal inspection, no edema Neurologic/Psych:AAOX3, grossly no focal neurological deficits Skin: normal color, warm Results & Data Laboratory Results Short CBC 09/25/18 09/26/18 Range/Units 20:05 05:39 WBC 17.03 H 15.51 H (4.8-10.8) K/uL Hgb 15.6 13.5 L (14.0-18.0) g/dL Hct 44.5 39.7 L (42-52) % Plt Count 407 H 367 (130-400) K/uL BMP 09/25/18 09/26/18 20:05 05:39 Sodium 136 139 Potassium 3.8 3.9 Chloride 105 107 Carbon Dioxide 22 28 BUN 14 13 Creatinine 1.34 1.31 Glucose 119 H 104 H Calcium 8.8 7.8 L Urine 09/25/18 Range/Units 22:13 Urine Color Yellow Urine Appearance Clear (Clear) Urine pH >= 9.0 H (4.5-7.5) Ur Specific [place] 1.019 (1.000-1.030) Urine Protein Negative (Negative) Urine Glucose (UA) Negative (Negative)
--- NOTE | 2018-09-26 14:41 | Discharge Summary ---
Date of Service September 26, 2018 Admission HPI Per Admitting Provider History obtained from patient and records. Medical history significant for urolithiasis, hypothyroidism, ongoing tobacco alcohol abuse as per records. Recent confinement last week for left ureteral calculus status post ureteral stent placement. Yesterday, patient underwent left ESWL outpatient by [facility]. Upon arrival home patient noted worsening achy left flank pain symptoms with nausea and emesis. No chest pain, no S OB, no fever, no chills. Gross hematuria noted and was told to expect. Intractable pain at the emergency room. Admission Exam Per Admitting Provider GENERAL: uncomfortable, no respiratory distress SKIN: Normal color, warm HEENT: [place] palpebral conjunctivae, no ptosis, dry buccal mucosa NECK : Supple, short neck, no tenderness CHEST : CTA, no tenderness HEART : RRR, no obvious murmurs ABDOMEN: Some distention, nontender Back: Left flank tenderness EXTREMITIES : No LE swelling/tenderness, no other conspicuous deformities noted NEUROLOGIC : Coherent, no facial asymmetry, no other gross focality Principal Diagnosis Discharge Information Discharge Diagnosis Renal subcapular Hematoma Discharge Goals Decrease discomfort,Improve function,Improve disease control Discharge Activity Limitations Per instructions/follow-up Discharge Data Allergies Allergy/AdvReac Type Severity Reaction Status Date / Time aspirin Allergy Mild Hives Verified 09/25/18 09:30 nickel Allergy Mild Redness of Verified 09/25/18 09:30 Skin NSAIDS (Non-Steroidal Allergy Mild hives Verified 09/25/18 09:30 Anti-Inflamma Consultations 09/25/18 22:39 ED Decision to Admit Stat 09/26/18 02:18 Consult Urology Stat Procedures Performed CT ABD: 1. Interval left-sided lithotripsy with fragmentation of the large left renal pelvic calculus 2. Interval placement of a double-pigtail left-sided nephroureteral stent 3. Bilateral nephrolithiasis 4. Interval development of a 12 x 3 x 7 cm left renal subcapsular hematoma. Ordered Studies 09/25/18 21:15 CT abd pelvis wo con Stat Hospital Course (1) Kidney hematoma without rupture of capsule, without open wound into cavity: Renal subcapular Hematoma S/P Recent ESWL for urolithiasis --CT ABD: Interval left-sided lithotripsy with fragmentation of the large left renal pelvic calculus. Interval placement of a double-pigtail left-sided nephroureteral stent. Bilateral nephrolithiasis. Interval development of a 12 x 3 x 7 cm left renal subcapsular hematoma. --conservative management --Pain control --Appreciate Urology Input --Hb stable --Needs follow up with Urology upon discharge Hypothyroidism TSH normal on 09/17/18 Ongoing tobacco abuse Ongoing alcohol abuse Consel to quit DT precautions Continue thiamine, folic acid DVT Px: SCDs RE renal hematoma Code Status Full code Total Time Total Time Spent Total Time Spent (In Minutes): 35 minutes Total Time Includes: Examination of the Patient, Discharge Planning, Medication Reconciliation, Communication With Other Providers and Other Discharge Plan Discharge Items Patient Disposition: Home - Self-Care Reason For Visit: RENAL HEMATOMA Discharge Diagnosis: Renal subcapular Hematoma Discharge Goals: Decrease discomfort, Improve disease control and Improve function Activity: Per 'Additional Instructions' section Exercise/Sports: Gradually increase as tolerated Non-emergency contact: Primary Care Provider and Urologist Call non-emergency contact if: you have any medication questions, your symptoms worsen, your pain is not controlled, your pain is worsening, your pain is unusual for you, your pain is concerning for you, you have a fever, your temperature is above 100.5 and your temperature is above 101 Follow-up/Referrals: Ken Brown [Primary Care Provider] - Diet: Heart Healthy Addtl Provider Instructions: Follow up with your PCP on 10/01/18 at 10:00AM Follow up with your Urologist in 1 week Your Urine Culture is pending at the time of discharge. Please follow up with your Physician for results Seek immediate medical attention if your symptoms reoccur or worsen Prescriptions: New thiamine HCl (vitamin B1) [Vitamin B-1] 100 mg Tablet 100 mg PO QAM 30 Days Qty: 30 RF: 0 folic acid 1 mg Tablet 1 mg PO QAM 30 Days Qty: 30 RF: 0 Continued loratadine 10 mg Tablet 10 mg PO DAILY PRN (Reason: Allergy Symptoms) RF: 0 hydrocodone-acetaminophen 5-325 mg tablet 1 tab PO Q6H PRN (Reason: pain) Qty: 20 RF: 0 tamsulosin 0.4 mg Capsule 0.4 mg PO QAM 30 Days Qty: 30 RF: 0 potassium citrate 10 mEq (1,080 mg) Tablet Extended Release 10 meq PO QAM 30 Days Qty: 30 RF: 0 Stand-Alone Forms: [facility] Discharge Orders: Discharge Order (Routine); Ordered 09/26/18 Ordered By: Harsha Aparicio Admission Data Admit Date/Time: 09/26/18 01:35 Attending Provider: Harsha Aparicio Admit Provider: Fitz Norton Primary Care Provider: Ken Brown Other Providers: Fitz Norton ; Phil Johnson Service: Medical Other Interventions: Discharge Summary Assessment (RN) Last Done: 09/26/18 14:19 Pending Studies at Discharge: Yes Studies:: urine Culture DC Date/Time DO NOT enter until pt leaves facility: 09/26/18 15:47
[2018-09-26] MEDS ORDERED: GABAPENTIN 600 MG TAB PO SCH (22:00)
[2018-09-27] MEDS ORDERED: FOLIC ACID 1 MG TAB PO SCH (09:00)
[2018-09-27] MEDS ORDERED: MULTIVITAMIN TAB PO SCH (09:00)
[2018-09-27] MEDS ORDERED: THIAMINE HCL 100 MG TAB PO SCH (09:00)
[2018-09-28] MEDS ORDERED: GABAPENTIN 600 MG TAB PO SCH (06:00)
[2018-09-29] MEDS ORDERED: GABAPENTIN 600 MG TAB PO SCH (18:00)
== END 2018-09-26 15:47 | disposition home or self-care (01) | DRG 920 ==
LOC: ED 19:48 → 4E 09-26 01:35

== ENCOUNTER 2022-09-02 04:27 | Inpatient (IN) ==
[2022-09-02] MEDS ORDERED: ALBUTEROL 0.5% NEB SOLN 2.5 MG/0.5 ML VIAL ONE (04:36)
[2022-09-02] MEDS ORDERED: ALBUT/IPRATROP 3MG/0.5MG NEB 3 ML VIAL ONE (04:38)
[2022-09-02] MEDS ORDERED: ALBUT/IPRATROP 3MG/0.5MG NEB 3 ML VIAL NEB STA (04:38)
[2022-09-02] MEDS ORDERED: methylPREDNISolone 125 MG/2 ML VIAL IV STA (04:38)
--- NOTE | 2022-09-02 04:43 | Emergency Department Note ---
History of Present Illness General Chief complaint: Respiratory Problems Stated complaint: HAVING TROUBLE BREATHING,COUGH Time Seen by Provider: 09/02/22 04:32 History of Present Illness 56-year-old male presents emergency department he is a smoker has a history of emphysema he states past 2 days he has had cough cold congestion symptoms states that he has been wheezing. Patient has been using an inhaler but ran out. Patient states that it worsened this evening. There are no other mitigating or alleviating factors. Patient denies hemoptysis weight loss denies chest pain denies fever. Home Medications Medication Instructions Recorded Confirmed Type loratadine 10 mg tablet 10 mg PO DAILY PRN Allergy Symptoms 09/23/18 09/25/18 H istory hydrocodone 5 mg-acetaminophen 325 1 tab PO Q6H PRN pain #20 tabs 09/25/18 09/25/18 Rx mg tablet Allergies Allergy/AdvReac Type Severity Reaction Status Date / Time aspirin Allergy Mild Hives Verified 09/25/18 09:30 nickel Allergy Mild Redness of Verified 09/25/18 09:30 Skin NSAIDS (Non-Steroidal Allergy Mild hives Verified 09/25/18 09:30 Anti-Inflamma Past Med/Surg History Medical History (Updated 09/02/22 @ 04:43 by Omar Marques DO) Allergy to NSAIDs BPH (benign prostatic hyperplasia) Hypothyroidism due to Shelley's thyroiditis currently no meds Kidney stones Tobacco use disorder Surgical History H/O lithotripsy H/O nasal polypectomy History of colonoscopy with polypectomy History of cystoscopy with stent placement History of surgery meatotomy as a child History of wisdom tooth extraction Family History Father Colon carcinoma metastatic to lung Family hx of colon cancer from colon cancer Mother Emphysema of lung Sister Bipolar disorder Other No family history of adverse response to anesthesia Social History Smoking Status: Former smoker Tobacco Type: Cigarettes Cigarettes Per Day: 3-4 a day; Second Hand Exposure: Yes (parents smoked); Hx Alcohol Use: Yes Alcohol type: beer Alcohol Intake Frequency Comment: 3 x weekly approx 4 beers a sitting Hx Substance Use: No Preferred Language: Bhutanese Communication Ability: Effective Visual Impairment: No Limitations Gig Tender Required: No Beliefs That Will Affect Care: Hoahaoism Hoahaoism Beliefs: Buddhism marital status: Single marital status details: Has long time girlfriend Current Living Situation: Significant Other current occupational status: disabled Feels Safe at Home: Yes Assistive Devices: None Review of Systems A total of 10 systems reviewed and were otherwise negative Respiratory: + cough and + dyspnea Physical Exam Vital Signs Vital Signs - 24 hr 09/02/22 04:38 09/02/22 04:27 09/02/22 04:50 Temperature 36.5 C Temperature Source Temporal Artery Scan Pulse Rate 98 H 97 H Pulse Rate [Apical] Respiratory Rate 32 H Respiratory Effort / Characteristics Respiratory Depth Respiratory Pattern Tachypnea Blood Pressure 147/82 H Blood Pressure Mean 103 Pulse Oximetry 87 L Oxygen Delivery Method Room Air Room Air Oxygen Flow Rate Sepsis Recent Fever Within 48 Hours No Sepsis New/Unexplained Change in Mental Status No Sepsis Action Taken by Nursing No Action Required Oxygen Flow Rate - Titration Pulse Oximetry Post Tiitration 09/02/22 04:35 09/02/22 04:49 09/02/22 04:40 Temperature Temperature Source Pulse Rate Pulse Rate [Apical] Respiratory Rate Respiratory Effort / Characteristics Labored Respiratory Depth Retractive Respiratory Pattern Blood Pressure Blood Pressure Mean Pulse Oximetry 87 L 96 Oxygen Delivery Method Room Air Nebulizer Room Air Oxygen Flow Rate Sepsis Recent Fever Within 48 Hours Sepsis New/Unexplained Change in Mental Status Sepsis Action Taken by Nursing Oxygen Flow Rate - Titration Pulse Oximetry Post Tiitration 09/02/22 04:53 09/02/22 04:58 09/02/22 04:59 Temperature Temperature Source Pulse Rate Pulse Rate [Apical] 86 Respiratory Rate 22 Respiratory Effort / Characteristics Respiratory Depth Shallow Respiratory Pattern Blood Pressure Blood Pressure Mean Pulse Oximetry 90 88 L 86 L Oxygen Delivery Method Nasal Cannula Nasal Cannula Nasal Cannula Oxygen Flow Rate 2 2 2 Sepsis Recent Fever Within 48 Hours Sepsis New/Unexplained Change in Mental Status Sepsis Action Taken by Nursing Oxygen Flow Rate - Titration 4 Pulse Oximetry Post Tiitration 90 GENERAL: Patient is awake alert in no acute distress patient is resting comfortably and showing no signs of anxiety; speaking in full sentences EYES: The conjunctivae are clear. The pupils are round and reactive. EARS, NOSE, MOUTH AND THROAT: The nose is without any evidence of any deformity. Mucous membranes are moist. Tongue is midline. NECK: The neck is nontender and supple. RESPIRATORY: Mild increased work of breathing, decreased breath sounds bilaterally wheezes CARDIOVASCULAR: Regular rate and rhythm noted there no murmurs rubs or gallops normal S1 normal S2. GASTROINTESTINAL: The abdomen is soft. Abdomen is nontender. PELVIS: The Pelvis is stable. No tenderness to palpation is noted. BACK: No midline tenderness or or step-off noted range of motion in flexion extension as well as rotation no signs of muscle spasm noted MUSCULOSKELETAL/EXTREMITIES: There is no evidence of gross deformity full range of motion is noted in the hips and shoulders. SKIN: There is no obvious evidence of any rash. There are no petechiae, pallor or cyanosis noted. NEUROLOGIC: Patient is awake alert and oriented x3 strength is symmetric patellar reflexes are 2+ bilaterally Course Reevaluation(s) Reevaluation #1: Patient is improved after neb treatment and Solu-Medrol however remains on oxygen pulse ox is 88%, is in no respiratory distress Time: 05:54 Consultations [facility] Time: 05:54 Administered Medications Discontinued Medications Albuterol (Albuterol 0.5% Neb Soln 2.5 Mg/0.5 Ml Vial) Confirm Administered Dose 2.5 mg .ROUTE .STK-MED ONE Stop: 09/02/22 04:37 Last Admin: 09/02/22 04:44 Dose: Not Given Documented By: TREVOR Albuterol (Albut/Ipratrop 3mg/0.5mg Neb 3 Ml Vial) Confirm Administered Dose 3 ml .ROUTE .STK-MED ONE Stop: 09/02/22 04:39 Last Admin: 09/02/22 04:44 Dose: Not Given Documented By: TREVOR Albuterol (Albut/Ipratrop 3mg/0.5mg Neb 3 Ml Vial) 3 ml NEB NOW STA; Protocol Stop: 09/02/22 04:39 Last Admin: 09/02/22 04:40 Dose: 3 ml Documented By: SHANIQUA Methylprednisolone (Methylprednisolone 125 Mg/2 Ml Vial) 125 mg IV NOW STA Stop: 09/02/22 04:39 Last Admin: 09/02/22 04:55 Dose: 125 mg Documented By: TREVOR Medical Decision Making Medical Records Attestation: I reviewed the patient's medical records. Home Medications Current Medication List: was personally reviewed by me Laboratory Data Attestation: I reviewed the patient's lab results. Lab work interpreted by me is unremarkable 09/02/22 04:40 09/02/22 04:40 Lab Results 09/02/22 09/02/22 Range/Units 04:40 04:40 WBC 10.96 H (4.8-10.8) K/ul RBC 5.18 (4.70-6.10) M/uL Hgb 15.9 (14.0-18.0) g/dl Hct 46.4 (42.0-52.0) % MCV 89.6 (80.0-100.0) fL MCH 30.7 (25.0-34.0) pg MCHC 34.3 (32.0-36.0) g/dL RDW Std Deviation 43.6 (36.4-46.3) fL RDW Coeff of Hai 13.2 (11.5-14.5) % Plt Count 436 H (130-400) K/uL MPV 9.6 (9.4-12.4) fL Immature Gran % (Auto) 0.3 % Neut % (Auto) 69.3 % Lymph % (Auto) 15.6 % [place] % (Auto) 7.6 % Eos % (Auto) 6.3 % Baso % (Auto) 0.9 % Neut # (Auto) 7.60 H (1.40-6.50) K/uL Lymph # (Auto) 1.71 (1.2-3.4) K/uL [place] # (Auto) 0.83 H (0.11-0.59) K/uL Eos # (Auto) 0.69 H (0-0.50) K/uL Baso # (Auto) 0.10 (0-0.2) K/uL Immature Gran # (Auto) 0.03 (0.01-0.20) K/uL Sodium 138 (136-145) mmol/L Potassium 4.1 (3.5-5.1) mmol/L Chloride 109 H (98-107) mmol/L Carbon Dioxide 23 (21-32) mmol/L Anion Gap 6 (3-11) BUN 17 (6-23) mg/dl Creatinine 1.01 (0.6-1.4) mg/dl Est Cr Clr Drug Dosing 77.3 ml/min Est GFR ( Amer) 96.6 ml/min Est GFR (Non-Af Amer) 83.3 ml/min BUN/Creatinine Ratio 16.8 (10-20) Glucose 111 H (70-99(Fasting)) mg/dl Calcium 9.2 (8.5-10.1) mg/dl Magnesium 2.1 (1.7-2.4) mg/dl Total Bilirubin 0.7 (0.2-1.0) mg/dl AST 21 (13-39) U/L ALT 25 (7-52) U/L Alkaline Phosphatase 49 (34-104) U/L Total Protein 7.8 (6.0-8.3) gm/dl Albumin 4.5 (3.4-5.0) gm/dl Globulin 3.3 (2.5-4.0) gm/dl Albumin/Globulin Ratio 1.4 (0.9-2) Imaging Data Attestation: I personally reviewed and interpreted this imaging study as follows: My Impression: Chest x-ray interpreted by me COPD changes ECG Data Attestation: I personally reviewed and interpreted this ECG as follows: Additional Comments: EKG interpreted by me normal sinus rhythm rate of 82 normal intervals normal a xis no obvious ST segment elevation or depression MDM Narrative Medical decision making differential diagnosis includes COPD exacerbation pneumonia bronchitis upper respiratory tract infection Plan is to check labs, chest x-ray, EKG, give DuoNeb, give IV steroids External medical records were reviewed by me Impression & Plan Acute exacerbation of chronic obstructive airways disease, Hypoxia Discharge Plan Visit Data Chief Complaint: Respiratory Problems Stated Complaint: HAVING TROUBLE BREATHING,COUGH ED Provider: Omar Marques Discharge Problem: Acute exacerbation of chronic obstructive airways disease, Hypoxia Patient Disposition: Admitted As Inpatient Forms Stand Alone Forms: [facility] [employer] Prescriptions Prescriptions: No Action loratadine 10 mg Tablet 10 mg PO DAILY PRN (Reason: Allergy Symptoms) hydrocodone-acetaminophen 5-325 mg tablet 1 tab PO Q6H PRN (Reason: pain) Qty: 20 0RF Referrals Referrals: Ken Brown MD [Primary Care Provider] -
[2022-09-02 05:21] LABS: Basophils % (auto) 0.9 %; Eosinophils # (auto) 0.69 K/uL (0-0.50); Eosinophils % (auto) 6.3 %; Hematocrit (blood only) 46.4 % (42.0-52.0); Hemoglobin 15.9 g/dl (14.0-18.0); Immature Granulocytes # (auto) 0.03 K/uL (0.01-0.20); Immature Granulocytes % (auto) 0.3 %; Lymphocytes # (auto) 1.71 K/uL (1.2-3.4); Lymphocytes % (auto) 15.6 %; Mean Corpuscular Hemoglobin 30.7 pg (25.0-34.0); Mean Corpuscular Hgb Conc 34.3 g/dL (32.0-36.0); Mean Corpuscular Volume 89.6 fL (80.0-100.0); Mean Platelet Volume 9.6 fL (9.4-12.4); Monocytes # (auto) 0.83 K/uL (0.11-0.59); Monocytes % (auto) 7.6 %; Neutrophils % (auto) 69.3 %; Platelet Count 436 K/uL (130-400); RDW Coefficient of Variation 13.2 % (11.5-14.5); RDW Standard Deviation 43.6 fL (36.4-46.3); Red Blood Count 5.18 M/uL (4.70-6.10); White Blood Count 10.96 K/ul (4.8-10.8)
[2022-09-02 05:38] LABS: Albumin Globulin Ratio 1.4 (0.9-2); Albumin Level 4.5 gm/dl (3.4-5.0); BUN Creatinine Ratio 16.8 (10-20); Bilirubin,Total 0.7 mg/dl (0.2-1.0); Calcium 9.2 mg/dl (8.5-10.1); Creatinine Clr Calc Pharmacy 77.3 ml/min; Est GFR (African American) 96.6 ml/min; Est GFR (Non-African American) 83.3 ml/min; Globulin 3.3 gm/dl (2.5-4.0); Magnesium 2.1 mg/dl (1.7-2.4); Potassium 4.1 mmol/L (3.5-5.1); Total Protein 7.8 gm/dl (6.0-8.3)
--- NOTE | 2022-09-02 07:15 | XRay Report ---
XR chest 1V portable CLINICAL HISTORY: cough TECHNIQUE: Single frontal radiograph of the chest was obtained. Comparison: Comparison is made to chest radiograph 04/19/2022 FINDINGS: No lines and tubes are seen. The cardiomediastinal silhouette is normal. The lungs are clear. No evid ence of pleural effusion or pneumothorax. IMPRESSION: No acute chest disease. ACT 112: Negative or not required by law. Electronically signed by: Marlon Nobels M.D. 09/02/2022 7:14 AM
--- NOTE | 2022-09-02 07:51 | History and Physical Report ---
DATE OF ADMISSION: 09/02/2022 CHIEF COMPLAINT: Shortness of breath. HISTORY OF PRESENT ILLNESS: A 56-year-old male with past medical history significant for Shelley's disease,, history of rhinitis, history of asthma, history of genital warts, kidney stones, ongoing tobacco use, history of alcohol abuse, presents with shortness of breath. The patient says since last couple of days, he is feeling more short of breath, coughing up whitish yellow phlegm. Denies any fevers. Has some headache after steroid in the ER. As he was not getting better, he came to the ER and was saturating 86% on room air, requiring oxygen. He says he smokes 1 packet of cigarettes in a week. Denies any fevers. He has some pain in the throat and at one spot in the upper chest on the left side. He had 3-4 episodes of diarrhea since the last couple of days, some nausea. No dizziness, no blurred visions, no earache, no runny nose. He has some sore throat, no difficulty swallowing. No abdominal pain. He says his urine output has somewhat decreased. No swelling in the legs. Currently, resting comfortably and hemodynamically stable. ALLERGIES: ASPIRIN, NICKEL, NSAIDS. PAST MEDICAL HISTORY: As mentioned above. PAST SURGICAL HISTORY: Colonoscopies, cystourethroscopy with insertion of stent, lithotripsy, nasal endoscopy and nasal surgery. MEDICATIONS: He used to take albuterol p.r.n., but he ran out of the medication. FAMILY HISTORY: Mother has emphysema, sister has bipolar. SOCIAL HISTORY: Smokes. As per Epic, he smoked 1 pack a day for 30 years, currently smoking 1 pack in a week. Says he drinks 10bers every other day the weekend. As per the Epic, occasional pots. REVIEW OF SYSTEMS: As per HPI. Rest of review of systems is negative. PHYSICAL EXAMINATION: GENERAL: The patient is of moderate build, not in acute distress. VITAL SIGNS: Temperature 36.5, pulse 86, respiratory rate 22, blood pressure 147/82, oxygen 86% when he came in. HEENT: No pallor. No icterus. Pupils equal, round and reactive to light. Oral mucosa moist. NECK: No JVD, no neck masses. CARDIOVASCULAR: S1 and S2 heard. Regular rate and rhythm. No murmur, no gallop. RESPIRATORY SYSTEM: Normal AP diameter. No accessory muscle use. Bilateral wheezing and rhonchi heard. ABDOMEN: Soft, bowel sounds present, nontender, no distention. CENTRAL NERVOUS SYSTEM: Alert and oriented. Speech is clear. No facial droop. Obeys commands. Moves extremities. EXTREMITIES: No edema, no erythema. LABORATORY DATA: WBC 10.9, hemoglobin 15.9, hematocrit 46.4, platelets 436. Sodium 138, potassium 4.1, chloride 109, CO2 of 23, BUN 17, creatinine 1, serum glucose 111, calcium 9.2, magnesium 2.1, total bilirubin 0.7, AST 21, ALT 25, alkaline phosphatase 49. COVID rapid test negative IMAGING: Chest x-ray: No acute findings. ELECTROCARDIOGRAM: Normal sinus rhythm at a rate of 82, no significant change was found. ASSESSMENT AND PLAN: A 56-year-old male presents with shortness of breath. 1. Shortness of breath, chronic obstructive pulmonary disease exacerbation, ongoing tobacco abuse. No obvious infiltrates on chest x-ray. He is requiring oxygen. At home, using albuterol as needed, which he ran out of the medication, currently not on any inhalers at home. We will place him on DuoNeb around the clock, IV Solu-Medrol 40 mg t.i.d., p.o. doxycycline and closely monitor. He needs two step and inhalers at discharge. 2. Chest pain in the upper chest on the left side at one spot. His EKG is okay. We will follow serial cardiac enzymes and echocardiogram. Monitor in the med-telemetry. 3. Tobacco abuse, needs counseling. 4. Alcoholism. Says drinks 10beers every other day. Will place him on gabapentin withdrawal protocol with iv Ativan prn. Iv thiamine, iv folic acid and mvi daily. 5. Deep venous thrombosis prophylaxis, Lovenox. DISPOSITION: Closely monitor in med-tele. PT/OT prior to discharge. Social service to help with discharge planning. Job ID: [id number] [facility]
[2022-09-02] MEDS ORDERED: LORazepam 2 MG/1 ML VIAL IV PRN ×3 (08:58)
[2022-09-02] MEDS ORDERED: NITROGLYCERIN SL 0.4 MG/TAB TAB SL PRN (08:58)
[2022-09-02] MEDS ORDERED: Ativan IV Alcohol Withdrawal--Active Protocol IV PRN (08:58)
[2022-09-02] MEDS ORDERED: ACETAMINOPHEN 325 MG TAB PO PRN (08:58)
[2022-09-02] MEDS ORDERED: GABAPENTIN 1200MG ALCOHOL WITHDRAWAL LOAD PO STA (08:58)
[2022-09-02] MEDS ORDERED: GABAPENTIN 600 MG TAB PO ONE (09:45)
[2022-09-02] MEDS: ENOXAPARIN INJ 40 MG/0.4 ML SYR SQ SCH (10:31)
[2022-09-02] MEDS: DOXYCYCLINE HYCLATE 100 MG CAP PO SCH ×2 (10:31→20:10)
[2022-09-02] MEDS: CEROVITE ADV FORMULA TAB PO SCH (10:32)
[2022-09-02] MEDS: THIAMINE HCL 100 MG in SYRINGE 9 ML IV SCH (10:32)
[2022-09-02] MEDS: FOLIC ACID 1 MG in SYRINGE 9.8 ML IV SCH (10:32)
[2022-09-02] MEDS: methylPREDNISolone 40 MG in SYRINGE 0 ML IV SCH ×2 (10:32→16:58)
--- NOTE | 2022-09-02 11:24 | Electrocardiogram Report ---
Test Reason : Blood Pressure : / mmHG Vent. Rate : 082 BPM Atrial Rate : 082 BPM P-R Int : 122 ms QRS Dur : 086 ms QT Int : 366 ms P-R-T Axes : 066 010 036 degrees QTc Int : 427 ms Poor data quality, interpretation may be adversely affected Normal sinus rhythm Normal ECG When compared with ECG of 16-SEP-2018 12:11, No significant change was found Confirmed by Ronak Altamirano ([id number]) on 09/02/2022 11:24:08 AM Referred By: REFERRED SELF Confirmed By:Nirmal Altamirano
[2022-09-02] MEDS: ALBUT/IPRATROP 3MG/0.5MG NEB 3 ML VIAL NEB SCH ×4 (12:05→20:14)
--- NOTE | 2022-09-02 15:16 | Communication Note ---
Date of Service: September 02, 2022 Patient seen and examined. 56-year-old man with intermittent asthma, allergic rhinitis, nasal polyps, chronic sinusitis, smoker who presents with shortness of breath and cough over the past few days. Noted to be hypoxic on presentation to the ER. Exam notable for bilateral wheezing, on nasal cannula 2 L/min with saturation 92%. Chest x-ray did not show any acute findings. Asthma exacerbation Basic spirometry seen on [facility] in 11/2021: Although the FVC and FEV1 are within normal limits, the FEV1/FVC ratio is mildly reduced, but above LLN.Conclusions:Pulmonary Function Diagnosis:Essentially normal spirometry Continue nebs,, steroid, wean oxygen as tolerated Counseled extensively about smoking cessation. Other plans as detailed in H&P this morning
[2022-09-02] MEDS: GABAPENTIN 600 MG TAB PO SCH ×2 (16:58→21:43)
[2022-09-03] MEDS: methylPREDNISolone 40 MG in SYRINGE 0 ML IV SCH (02:08)
[2022-09-03] MEDS ORDERED: GABAPENTIN 600 MG TAB PO SCH (06:00)
[2022-09-03 06:10] LABS: Hematocrit (blood only) 42.3 % (42.0-52.0); Hemoglobin 14.7 g/dl (14.0-18.0); Mean Corpuscular Hemoglobin 30.5 pg (25.0-34.0); Mean Corpuscular Hgb Conc 34.8 g/dL (32.0-36.0); Mean Corpuscular Volume 87.8 fL (80.0-100.0); Mean Platelet Volume 9.6 fL (9.4-12.4); Platelet Count 385 K/uL (130-400); RDW Coefficient of Variation 13.2 % (11.5-14.5); RDW Standard Deviation 42.4 fL (36.4-46.3); Red Blood Count 4.82 M/uL (4.70-6.10); White Blood Count 19.39 K/ul (4.8-10.8)
[2022-09-03 06:28] LABS: Calcium 9.4 mg/dl (8.5-10.1); Creatinine Clr Calc Pharmacy 74.3 ml/min; Est GFR (African American) 92.2 ml/min; Est GFR (Non-African American) 79.5 ml/min; Magnesium 2.1 mg/dl (1.7-2.4); Potassium 4.2 mmol/L (3.5-5.1)
[2022-09-03 06:34] LABS: Basophils # (auto) 0.02 K/uL (0-0.2); Basophils % (auto) 0.1 %; Immature Granulocytes % (auto) 0.5 %; Lymphocytes % (auto) 4.6 %; Monocytes % (auto) 1.5 %; Neutrophils # (auto) 18.07 K/uL (1.40-6.50); Neutrophils % (auto) 93.3 %
[2022-09-03] MEDS: ALBUT/IPRATROP 3MG/0.5MG NEB 3 ML VIAL NEB SCH ×2 (06:53→10:47)
[2022-09-03] MEDS ORDERED: predniSONE 20 MG TAB PO SCH (09:00)
[2022-09-03] MEDS: ENOXAPARIN INJ 40 MG/0.4 ML SYR SQ SCH (10:11)
[2022-09-03] MEDS: FOLIC ACID 1 MG in SYRINGE 9.8 ML IV SCH (10:12)
[2022-09-03] MEDS: DOXYCYCLINE HYCLATE 100 MG CAP PO SCH (10:12)
[2022-09-03] MEDS: CEROVITE ADV FORMULA TAB PO SCH (10:12)
[2022-09-03] MEDS: THIAMINE HCL 100 MG in SYRINGE 9 ML IV SCH (10:12)
--- NOTE | 2022-09-03 10:49 | Electrocardiogram Report ---
Test Reason : Blood Pressure : / mmHG Vent. Rate : 094 BPM Atrial Rate : 094 BPM P-R Int : 118 ms QRS Dur : 084 ms QT Int : 372 ms P-R-T Axes : 063 019 047 degrees QTc Int : 465 ms Normal sinus rhythm Normal ECG When compared with ECG of 02-SEP-2022 04:57, No significant change was found Confirmed by Ronak Altamirano ([id number]) on 09/03/2022 10:49:01 AM Referred By: REFERRED SELF Confirmed By:Nirmal Altamirano
--- NOTE | 2022-09-03 18:31 | Discharge Summary ---
Date of Service September 03, 2022 Admission HPI Per Admitting Provider 56-year-old male with past medical history significant for Shelley's disease,, history of rhinitis, history of asthma, history of genital warts, kidney stones, ongoing tobacco use, history of alcohol abuse, presents with shortness of breath. The patient says since last couple of days, he is feeling more short of breath, coughing up whitish yellow phlegm. Denies any fevers. Has some headache after steroid in the ER. As he was not getting better, he came to the ER and was saturating 86% on room air, requiring oxygen. He says he smokes 1 packet of cigarettes in a week. Denies any fevers. He has some pain in the throat and at one spot in the upper chest on the left side. He had 3-4 episodes of diarrhea since the last couple of days, some nausea. No dizziness, no blurred visions, no earache, no runny nose. He has some sore throat, no difficulty swallowing. No abdominal pain. He says his urine output has somewhat decreased. No swelling in the legs. Currently, resting comfortably and hemodynamically stable. Admission Exam Per Admitting Provider GENERAL: The patient is of moderate build, not in acute distress. VITAL SIGNS: Temperature 36.5, pulse 86, respiratory rate 22, blood pressure 147/82, oxygen 86% when he came in. HEENT: No pallor. No icterus. Pupils equal, round and reactive to light. Oral mucosa moist. NECK: No JVD, no neck masses. CARDIOVASCULAR: S1 and S2 heard. Regular rate and rhythm. No murmur, no gallop. RESPIRATORY SYSTEM: Normal AP diameter. No accessory muscle use. Bilateral wheezing and rhonchi heard. ABDOMEN: Soft, bowel sounds present, nontender, no distention. CENTRAL NERVOUS SYSTEM: Alert and oriented. Speech is clear. No facial droop. Obeys commands. Moves extremities. EXTREMITIES: No edema, no erythema. Principal Diagnosis Asthma exacerbation Acute respiratory failure with hypoxia Discharge Exam Constitutional + well hydrated; no acute distress Eyes PERRL, conjunctivae normal, anicteric sclerae ENMT external ear and nose normal, oropharynx normal Respiratory normal respiratory effort, lungs clear to auscultation Cardiovascular Rate/Rhythm: regular rate and regular rhythm S1 S2 Gastrointestinal (Abdomen) normal bowel sounds, soft, nontender, no hepatosplenomegaly Musculoskeletal no cyanosis or clubbing, extremities motor strength 5/5 Neurologic PERRL, EOMI, accommodation nl, no face palsy, no dysarthria Psychiatric A+Ox3, euthymic affect Discharge Data Allergies Allergy/AdvReac Type Severity Reaction Status Date / Time aspirin Allergy Mild Hives Verified 09/25/18 09:30 nickel Allergy Mild Redness of Verified 09/25/18 09:30 Skin NSAIDS (Non-Steroidal Allergy Mild hives Verified 09/25/18 09:30 Anti-Inflamma Consultations 09/02/22 05:24 ED Decision to Admit Stat Hospital Course (1) Asthma exacerbation: (2) Acute respiratory failure with hypoxia: Plan 56-year-old man with intermittent asthma, allergic rhinitis, nasal polyps, chronic sinusitis, smoker who presents with shortness of breath and cough over the past few days. Noted to be hypoxic on presentation to the ER. Was started on nebs and IV steroids. CXR did not show any acute findings. Symptoms quickly improved Reports shortness of breath is resolved today Still has mild cough. Encouraged patient to quit smoking Was weaned off oxygen. Patient has been ambulating the hallways this morning on room air without desaturation. WBC was 10 on admission, increased to 19 today. Likely due to steroid Patient discharged on prednisone taper Advised to follow up with his PCP and Allergologist Total Time Total Time Spent Total Time Spent (In Minutes): 45 Total Time Includes: Examination of the Patient, Discharge Planning and Medication Reconciliation Discharge Plan Discharge Items Patient Disposition: Home - Self-Care Reason For Visit: Shortness of breath Discharge Diagnosis: Asthma exacerbation Activity: Resume your previous activity Non-emergency contact: Primary Care Provider Call non-emergency contact if: you have any medication questions and your symptoms worsen Follow-up/Referrals: Ken Brown MD [Primary Care Provider] - Diet: Regular Addtl Attending Provider Instructions: Mr Hughes You came to the hospital complaining of cough and shortness of breath You were managed for asthma exacerbation. Your symptoms improved. You are being discharged home. Please ensure you take the prednisone taper as recommended starting tomorrow: 40mg daily for 3 days, then 30mg daily for 3 days, then 20mg daily for 3 days, then 10mg daily for 3days and then stop. It is very important that you quit smoking as we discussed. Please continue follow up with your Primary Doctor and order management specialist. Pending Studies at Discharge: No Stand-Alone Forms: My [facility] FlagTap, Smoking Cessation Medications and DC Order Prescriptions: New doxycycline hyclate 100 mg Capsule 100 mg PO BID 2 Days Qty: 4 0RF prednisone 10 mg tablet See Rx Instructions .ROUTE .COMPLEX Qty: 30 0RF Rx Instructions: Take 4tab daily for 3 days, then 3 tabs daily for 3 days, then 2 tabs daily for 3 days, then 1 tab daily for 3 days, then stop Continued budesonide [Pulmicort] 1 mg/2 mL Suspension For Nebulization 1 mg irrigation DAILY albuterol sulfate 90 mcg/actuation HFA aerosol inhaler 2 inh INHALATION Q4H PRN (Reason: Shortness Of Breath) Qty: 8.5 0RF Discharge Orders: Discharge Order (Routine); Ordered 09/03/22 Ordered By: Grace Ennis Admission Data Admit Date/Time: 09/02/22 06:09 Attending Provider: Grace Ennis I. Admit Provider: Mike Yadav Primary Care Provider: Ken Brown Other Providers: Mike Yadav ; Wayne Mendez Other Interventions: Discharge Summary Assessment (RN) Last Done: 09/03/22 10:55
[2022-09-04] MEDS ORDERED: GABAPENTIN 600 MG TAB PO SCH (10:00)
[2022-09-05] MEDS ORDERED: GABAPENTIN 600 MG TAB PO SCH (22:00)
== END 2022-09-03 13:31 | disposition home or self-care (01) | DRG 202 ==
LOC: ED 04:27 → 1E 06:09 → SUATTDRO 06:09 → 1E 08:40 → 2N 14:31